=== PATIENT | female | born 1930 | race Caucasian/White ===

== ENCOUNTER → 2016-10-27 | Outpatient (CLI) | payer MEDICARE, BC ==
[~2016-10-27] MED LIST: ASPI325T PO; ATOR10TA15 PO; CARV3.12 PO; CARV3.125 PO; CARV6.25 PO; CEPH-460 PO; CYAN1TAB22 PO; LISI-519 PO; MULTTAB67 PO; [UNRECOGNIZED DRUG - CODE] PO
[2016-10-27 12:55] LABS: HEMATOCRIT 44.2 % (35.0-46.0); MEAN CELL VOLUME 89.7 FL (80.0-100.0); MEAN CORPUSCULAR HEMOGLOBIN 29.4 PG (27.0-34.0); MEAN CORPUSCULAR HGB CONC 32.8 % (32.0-36.0); PLATELET COUNT 226 TH/MM3 (150-450); RED BLOOD COUNT 4.93 MIL/MM3 (4.00-5.30); REVIEW FLAG FINAL; WHITE BLOOD COUNT 15.5 TH/MM3 (4.0-11.0)
[2016-10-27 13:30] LABS: ALT (GPT) 13 U/L (10-53); ANION GAP 7 MEQ/L (5-15); AST (GOT) 13 U/L (15-37); BICARBONATE 31.3 MEQ/L (21.0-32.0); BLOOD UREA NITROGEN 18 MG/DL (7-18); CHLORIDE 102 MEQ/L (98-107); GLOMERULAR FILTRATION RATE 93 ML/MIN (>89); GLUCOSE,FASTING 92 MG/DL (74-99); POTASSIUM 4.1 MEQ/L (3.5-5.1); SODIUM (NA) 140 MEQ/L (136-145)
[2016-10-27 13:34] LABS: ALKALINE PHOSPHATASE 115 U/L (45-117); LDL CHOLESTEROL 29 MG/DL (0-99); TOTAL BILIRUBIN ADULT 0.7 MG/DL (0.2-1.0)
[2016-10-27 13:39] LABS: CREATINE KINASE 45 U/L (26-192)
== END ==
LOC: PLAB 07:56
DX: Z79.899 Other long term (current) drug therapy (principal); I25.10 Atherosclerotic heart disease of native coronary artery without angina pectoris; I10 Essential (primary) hypertension
CPT/HCPCS: 36415; 80053; 80061; 82550; 85027

== ENCOUNTER 2016-11-06 14:11 | Emergency (ER) | payer MEDICARE, BC ==
[~2016-11-06] VITALS: Ht 149.9 cm; Wt 65.0 kg
[~2016-11-06 14:11] MED LIST changes: -CARV3.125 PO; -CARV6.25 PO; -CEPH-460 PO; -LISI-519 PO
[2016-11-06 14:13] VITALS: BP 139/66; PULSE 67; RESP 14; TEMP 98.6; O2SAT 96
[2016-11-06] MEDS ORDERED: SODIUM CHLORIDE 0.9% FLUSH 5 ML FLUSH IVF PRN (15:45)
--- NOTE | 2016-11-06 15:57 | PD ---
HPI . Weakness Chief Complaint: General Weakness Time Seen by Provider: 15:27 Travel History International Travel<30 days: No Contact w/Intl Traveler<30days: No Traveled to known affect area: No History of Present Illness HPI The patient presents with a chief complaint of weakness. Her history starts back in August when she suffered a fall from bed. At that time, she had clinical symptoms compatible with a stroke. She was admitted to the hospital and subsequently discharged to a rehabilitation facility. She states that she was just discharged from the rehabilitation facility 2 weeks ago. She now lives at home with her daughter and has home health. There is not someone with her 04/05 but there are people in and out of the house constantly all day long. The daughter states that they noted increased weakness yesterday. The patient sat on the toilet for prolonged period of time. She was too weak to get up off the toilet. The daughter states that they called the patient's primary care physician today who instructed them to come to the emergency department to get an MRI. The patient denies headache or blurred vision. The daughter states that the patient's facial droop and speech have waxed and waned since August and are not appreciably changed today. The patient denies any fever, cold symptoms, GI symptoms, symptoms. Her only real symptom today is weakness. She also states that she has arthritis. PFSH Past Medical History Arthritis: Yes Blood Disorders: No Anxiety: No Depression: No Heart Rhythm Problems: No Cancer: Yes (Breast lumpectomy caught early, good follow up ) Cardiac Catheterization: Yes (4 stents last 2007) Cardiovascular Problems: Yes (stentx5) High Cholesterol: Yes Chemotherapy: No Chest Pain: No Congestive Heart Failure: Yes (2006) Cerebrovascular Accident: Yes (cvax3) Coronary Artery Disease: Yes Diabetes: No Diminished Hearing: No Endocrine: No Gastrointestinal Disorders: No Genitourinary: No Hypertension: Yes Immune Disorder: No Implanted Vascular Access Dvce: Yes Musculoskeletal: Yes (Walks with shuffle, Left side affected by stroke, does ADLs ) Neurologic: Yes (2 strokes 2002 & 2005) Psychiatric: No Reproductive: No Respiratory: Yes Radiation Therapy: No Thyroid Disease: No Influenza Vaccination: No Menopausal: Yes Past Surgical History Body Medical Devices: Stents in the heart Pacemaker: No Other Surgery: Yes (Lumpectomy early cancer 2011, Breast biopsy 1999 neg, Stents ) Social History Alcohol Use: No Tobacco Use: No Substance Use: No Allergies-Medications (Allergen,Severity, Reaction): Coded Allergies: Bisphosphonates (Verified Allergy, Severe, ALLERGY TO BONIVA-HYPOTENSION, 01/24/15) Reported Meds & Prescriptions Reported Meds & Active Scripts Active Aspirin 325 Mg Tab 325 Mg PO DAILY Reported Coreg (Carvedilol) 6.25 Mg Tab 6.25 Mg PO BID Atorvastatin (Atorvastatin Calcium) 10 Mg Tab 10 Mg PO HS Niacin 500 Mg Tab 500 Mg PO DAILY Vitamin B-12 (Cyanocobalamin) 5,000 Mcg Tab 5,000 Mcg PO DAILY Multiple Vitamin 1 Tab 1 Tab PO DAILY Review of Systems Except as stated in HPI: all other systems reviewed are Neg General / Constitutional: No: Fever, Chills Eyes: No: Diploplia, Blurred Vision HENT: No: Headaches, Vertigo Cardiovascular: No: Chest Pain or Discomfort Respiratory: No: Cough, Shortness of Breath Gastrointestinal: No: Nausea, Vomiting, Diarrhea, Abdominal Pain Genitourinary: No: Urgency, Frequency, Dysuria Musculoskeletal: Positive: Arthralgias Neurologic: Positive: Weakness, Slurred Speech, No: Dizziness, Syncope, Headache, Change in Mentation, Incontinence, Seizures Physical Exam Narrative GENERAL: The patient is awake and alert and able to give her own history. SKIN: Warm and dry. HEAD: Atraumatic. Normocephalic. EYES: Pupils equal and round. Extraocular movements are intact. ENT: No nasal bleeding or discharge. Mucous membranes pink and moist. NECK: Trachea midline. Neck is supple. CARDIOVASCULAR: Regular rate and rhythm. Heart sounds are normal. RESPIRATORY: No accessory muscle use. Lungs clear with full air movement throughout. GASTROINTESTINAL: Abdomen soft, non-tender, nondistended. MUSCULOSKELETAL: No obvious deformities. No edema. She has some arthritic changes in her joints. NEUROLOGICAL: Awake and alert. No obvious cranial nerve deficits. She can wrinkle her forehead, squeeze her eyes shut, smile equally and protrude her tongue in the midline. Motor grossly within normal limits. Speech is a little pressure. She has some tremors with [id number]. But, she does not "miss." PSYCHIATRIC: Appropriate mood and affect; insight and judgment normal. Data Data Last Documented VS Vital Signs Date Time Temp Pulse Resp B/P Pulse Ox O2 Delivery O2 Flow Rate FiO2 11/06/16 17:13 62 14 166/70 98 Room Air 11/06/16 14:13 98.6 Orders Electrocardiogram (11/06/16 15:42) Complete Blood Count With Diff (11/06/16 15:42) Comprehensive Metabolic Panel (11/06/16 15:42) Creatine Kinase (Cpk) (11/06/16 15:42) Troponin I (11/06/16 15:42) Urinalysis - C+S If Indicated (11/06/16 15:42) Ct Brain W/O Iv Contrast(Rout) (11/06/16 15:42) Blood Glucose (11/06/16 15:42) Ecg Monitoring (11/06/16 15:42) Iv Access Insert/Monitor (11/06/16 15:42) Cath For Specimen (11/06/16 15:42) Oximetry (11/06/16 15:42) Sodium Chloride 0.9% Flush (Ns Flush) (11/06/16 15:45) CKMB (11/06/16 16:00) CKMB% (11/06/16 16:00) Urine Culture (11/06/16 16:30) Ceftriaxone Inj (Rocephin Inj) (11/06/16 17:45) Labs Laboratory Tests Test 11/06/16 11/06/16 16:00 16:30 White Blood Count 9.1 TH/MM3 Red Blood Count 5.01 MIL/MM3 Hemoglobin 14.7 GM/DL Hematocrit 44.5 % Mean Corpuscular Volume 88.8 FL Mean Corpuscular Hemoglobin 29.3 PG Mean Corpuscular Hemoglobin 33.0 % Concent Red Cell Distribution Width 14.2 % Platelet Count 273 TH/MM3 Mean Platelet Volume 7.8 FL Neutrophils (%) (Auto) 77.0 % Lymphocytes (%) (Auto) 12.4 % Monocytes (%) (Auto) 9.2 % Eosinophils (%) (Auto) 1.3 % Basophils (%) (Auto) 0.1 % Neutrophils # (Auto) 7.0 TH/MM3 Lymphocytes # (Auto) 1.1 TH/MM3 Monocytes # (Auto) 0.8 TH/MM3 Eosinophils # (Auto) 0.1 TH/MM3 Basophils # (Auto) 0.0 TH/MM3 CBC Comment DIFF FINAL Differential Comment Sodium Level 140 MEQ/L Potassium Level 4.1 MEQ/L Chloride Level 104 MEQ/L Carbon Dioxide Level 29.2 MEQ/L Anion Gap 7 MEQ/L Blood Urea Nitrogen 13 MG/DL Creatinine 0.65 MG/DL Estimat Glomerular Filtration 86 ML/MIN Rate Random Glucose 85 MG/DL Calcium Level 8.8 MG/DL Total Bilirubin 0.3 MG/DL Aspartate Amino Transf 24 U/L (AST/SGOT) Alanine Aminotransferase 20 U/L (ALT/SGPT) Alkaline Phosphatase 108 U/L Total Creatine Kinase 263 U/L Creatine Kinase MB 4.7 NG/ML Creatine Kinase MB % 1.8 % Troponin I LESS THAN 0.02 NG/ML Total Protein 6.9 GM/DL Albumin 2.7 GM/DL Urine Color YELLOW Urine Turbidity CLEAR Urine pH 6.0 Urine Specific [employer] 1.015 Urine Protein NEG mg/dL Urine Glucose (UA) NEG mg/dL Urine Ketones NEG mg/dL Urine Occult Blood NEG Urine Nitrite NEG Urine Bilirubin NEG Urine Urobilinogen LESS THAN 2.0 MG/DL Urine Leukocyte Esterase TRACE Urine RBC 1 /hpf Urine WBC 6 /hpf Urine Squamous Epithelial 1 /hpf Cells Urine Bacteria RARE /hpf Urine Mucus FEW /lpf Microscopic Urinalysis Comment CATH-CULTURE IND MDM Medical Decision Making Medical Screen Exam Complete: Yes Emergency Medical Condition: Yes Medical Record Reviewed: Yes (patient was previously admitted about 2 months ago with symptoms compatible with stroke. She had carotid ultrasounds that showed plaque but no limitation to blood flow. Her brain CT showed chronic changes and her brain MRI showed chronic changes along with an old right occipital infarct.) Interpretation(s) EKG shows a normal sinus rhythm with no acute ischemic change. Differential Diagnosis Differential diagnosis of weakness includes but is not limited to infection, CVA , electrolyte disturbance, renal failure, hypoglycemia, UTI, ACS Narrative Course Patient presents with her daughter with a chief complaint of weakness. The daughter is requesting an MRI stating that the primary care physician told them to come here for an MRI. I think we should probably start with a CT. I also think that she needs to be worked up for something relatively benign such as a UTI. CBC is normal. Her chemistries are unremarkable. Cardiac enzymes are negative. UA is suggestive of UTI with positive leukocyte esterase, bacteria well as white blood cells. I will give her a dose of Rocephin and then discharged home Keflex. Her CT shows no acute change. Diagnosis Primary Impression: UTI (urinary tract infection) Qualified Code: N30.00 - Acute cystitis without hematuria Additional Impression: Facial droop Patient Instructions: General Instructions Additional Instructions: Take your antibiotic as directed and drink lots of fluids. Med/Other Pt SpecificInfo: Prescription(s) given Scripts Cephalexin (Keflex)500 Mg Uoz050 Mg PO Q8H #30 CAP Ref 0 Prov:Elma Gauthier MD 11/06/16 Disposition: 01 DISCHARGE HOME Condition: Stable Elma Gauthier MD Nov 06, 2016 15:57
[2016-11-06 16:30] LABS: BASOPHIL % 0.1 % (0.0-2.0); EOSINOPHIL # 0.1 TH/MM3 (0-0.4); EOSINOPHIL % 1.3 % (0.0-4.0); HEMATOCRIT 44.5 % (35.0-46.0); HEMO FLAGS DIFF FINAL; LYMPH % 12.4 % (9.0-44.0); LYMPHOCYTE # 1.1 TH/MM3 (1.0-4.8); MEAN CELL VOLUME 88.8 FL (80.0-100.0); MEAN CORPUSCULAR HEMOGLOBIN 29.3 PG (27.0-34.0); MONO % 9.2 % (0.0-8.0); PLATELET COUNT 273 TH/MM3 (150-450); RED BLOOD COUNT 5.01 MIL/MM3 (4.00-5.30); RED CELL DISTRIBUTION WIDTH 14.2 % (11.6-17.2); WHITE BLOOD COUNT 9.1 TH/MM3 (4.0-11.0)
[2016-11-06] MEDS ORDERED: CARV6.25 PO (16:42)
[2016-11-06 16:43] LABS: ALT (GPT) 20 U/L (10-53); ANION GAP 7 MEQ/L (5-15); AST (GOT) 24 U/L (15-37); BICARBONATE 29.2 MEQ/L (21.0-32.0); BLOOD UREA NITROGEN 13 MG/DL (7-18); CHLORIDE 104 MEQ/L (98-107); GLOMERULAR FILTRATION RATE 86 ML/MIN (>89); POTASSIUM 4.1 MEQ/L (3.5-5.1); SODIUM (NA) 140 MEQ/L (136-145)
[2016-11-06 16:45] LABS: ALKALINE PHOSPHATASE 108 U/L (45-117); CREATINE KINASE 263 U/L (26-192); TOTAL BILIRUBIN ADULT 0.3 MG/DL (0.2-1.0)
[2016-11-06 16:47] LABS: BACTERIA, URINE RARE /hpf; BLOOD, URINE NEG (NEG); GLUCOSE,URINE NEG (NEG); KETONE, URINE NEG (NEG); MUCUS URINE FEW /lpf (OCC); NITRITE,URINE NEG (NEG); SQUAMOUS EPITHELIAL CELL URINE 1 /hpf (0-5); URINE COLOR YELLOW (YELLW/STRAW)
[2016-11-06 16:58] LABS: COMMENT (UR) CATH-CULTURE IND; CULTURE IF INDICATED CATH CULTURE IND
--- NOTE | 2016-11-06 17:00 | RADRPT ---
EXAM DATE/TIME: 11/06/2016 16:42 [facility] COMPARISON: MRI BRAIN W/O CONTRAST, September 05, 2016, 20:33. CT BRAIN W/O CONTRAST, September 05, 2016, 11:05. INDICATIONS : Generalized weakness with altered mental status and loss of appetite. RADIATION DOSE: 33.85 CTDIvol (mGy) MEDICAL HISTORY : Cerebrovascular disease. Hypertension. Carcinoma, breast. SURGICAL HISTORY : None. ENCOUNTER: Initial ACUITY: 1 day PAIN SCALE: 0/10 LOCATION: cranial TECHNIQUE: Multiple contiguous axial images were obtained of the head. Using automated exposure control and adj ustment of the mA and/or kV according to patient size, radiation dose was kept as low as reasonably a chievable to obtain optimal diagnostic quality images. FINDINGS: CEREBRUM: The ventricles are normal for age. No evidence of midline shift, mass lesion, hemorrhage or acute in farction. No extra-axial fluid collections are seen. POSTERIOR FOSSA: The cerebellum and brainstem are intact. The 4th ventricle is midline. The cerebellopontine angle i s unremarkable. EXTRACRANIAL: The visualized portion of the orbits is intact. SKULL: The calvaria is intact. No evidence of skull fracture. Air fluid level identified within the left ma xillary sinus. CONCLUSION: Normal examination for a patient of this age. Left maxillary sinus disease. Mildred Romo MD on November 06, 2016 at 16:57 Board Certified Radiologist. This report was verified electronically.
[2016-11-06 17:13] VITALS: BP 166/70; PULSE 62; RESP 14; O2SAT 98
[2016-11-06 17:17] LABS: CKMB 4.7 NG/ML (0.5-3.6)
[2016-11-06] MEDS ORDERED: cefTRIAXone INJ 1,000 MG in SODIUM CHLORIDE 0.9% INJ 100 ML IV ONE (17:45)
[2016-11-06] MEDS ORDERED: CEPH-460 PO ×2 (18:07→19:56)
[2016-11-06 18:28] VITALS: BP 152/63; PULSE 64; RESP 16; O2SAT 96
[2016-11-06 19:15] VITALS: BP 183/80; PULSE 63; RESP 18; O2SAT 96
--- NOTE | 2016-11-07 16:38 | EKG ---
Date Performed: 11/06/2016 Time Performed: 16:12:16 PTAGE: 86 years EKG: SINUS BRADYCARDIA WITH SINUS ARRHYTHMIA BORDERLINE ECG NO PREVIOUS TRACING DOCTOR: Vernon Liu Interpretating Date/Time 11/07/2016 16:37:07
== END 2016-11-06 20:12 | disposition home or self-care (01) ==
LOC: NEPA 14:11
DX: N39.0 Urinary tract infection, site not specified (principal); R29.810 Facial weakness; R53.1 Weakness; I49.8 Other specified cardiac arrhythmias; R00.1 Bradycardia, unspecified; I69.393 Ataxia following cerebral infarction; E78.00 Pure hypercholesterolemia, unspecified; I50.9 Heart failure, unspecified; I10 Essential (primary) hypertension
CPT/HCPCS: 70450; 80053; 81001; 82550; 82552; 84484; 85025; 87086; 93005; 96365; 99285; J0696; P9612

== ENCOUNTER 2016-12-05 19:00 | Observation (INO) | payer MEDICARE, BC ==
[~2016-12-05] VITALS: Ht 149.9 cm; Wt 61.8 kg
[~2016-12-05 19:00] MED LIST changes: -CARV3.12 PO; +CARV6.25 PO; +CEPH-460 PO
[2016-12-05 19:11] VITALS: BP 167/73; PULSE 64; RESP 18; TEMP 98.5; O2SAT 97
[2016-12-05 20:05] VITALS: BP 186/78; PULSE 64; RESP 16; TEMP 98.5; O2SAT 96
--- NOTE | 2016-12-05 20:07 | PD ---
HPI Chief Complaint: syncope Time Seen by Provider: 19:52 Travel History International Travel<30 days: No Contact w/Intl Traveler<30days: No Traveled to known affect area: No History of Present Illness HPI This 86-year-old female is brought by her daughter. The daughter says that she came home from work today and found her slumped over the toilet. She was awake but she was not able to get up. She had gone to the bathroom and apparently had a syncopal episode and she turned to flush the toilet. She has not had syncopal episodes before. The daughter says that she helped the cleanup and then was walking her felt that her gait was very unsteady. While walking her she had a second episode syncopal episode. She denies any chest pain or shortness of breath. She has stents in her heart. She has had 2 strokes in the past. Strokes affected her right side and she has had a fairly good recovery. PFSH Past Medical History Arthritis: Yes Blood Disorders: No Anxiety: No Depression: No Heart Rhythm Problems: No Cancer: Yes (Breast lumpectomy caught early, good follow up ) Cardiac Catheterization: Yes (4 stents last 2007) Cardiovascular Problems: Yes (stentx5) High Cholesterol: Yes Chemotherapy: No Chest Pain: No Congestive Heart Failure: Yes (2005) Cerebrovascular Accident: Yes (cvax3) Coronary Artery Disease: Yes Diabetes: No Diminished Hearing: No Endocrine: No Gastrointestinal Disorders: No Genitourinary: No Hypertension: Yes Immune Disorder: No Implanted Vascular Access Dvce: Yes Musculoskeletal: Yes (Walks with shuffle, Left side affected by stroke, does ADLs ) Neurologic: Yes (2 strokes 2002 & 2005) Psychiatric: No Reproductive: No Respiratory: Yes Radiation Therapy: No Thyroid Disease: No Menopausal: Yes Past Surgical History Body Medical Devices: Stents in the heart Pacemaker: No Other Surgery: Yes (Lumpectomy early cancer 2011, Breast biopsy 1999 neg, Stents ) Social History Alcohol Use: No Tobacco Use: No Substance Use: No Allergies-Medications (Allergen,Severity, Reaction): Coded Allergies: Bisphosphonates (Verified Allergy, Severe, ALLERGY TO BONIVA-HYPOTENSION, 01/24/15) Reported Meds & Prescriptions Reported Meds & Active Scripts Active Aspirin 325 Mg Tab 325 Mg PO DAILY Reported Coreg (Carvedilol) 6.25 Mg Tab 6.25 Mg PO BID Atorvastatin (Atorvastatin Calcium) 10 Mg Tab 10 Mg PO HS Niacin 500 Mg Tab 500 Mg PO DAILY Vitamin B-12 (Cyanocobalamin) 5,000 Mcg Tab 5,000 Mcg PO DAILY Multiple Vitamin 1 Tab 1 Tab PO DAILY Review of Systems General / Constitutional: No: Fever, Chills Eyes: No: Diploplia, Blurred Vision HENT: Positive: Lightheadedness, No: Headaches, Vertigo Cardiovascular: Positive: Syncope, No: Chest Pain or Discomfort, Palpitations Respiratory: No: Cough Gastrointestinal: No: Vomiting, Diarrhea Genitourinary: No: Urgency, Frequency Musculoskeletal: No: Myalgias, Arthralgias Skin: No Rash Neurologic: Positive: Weakness, Syncope, No: Focal Abnormalities Hematologic/Lymphatic: No: Easy Bruising Physical Exam Narrative GENERAL: Well-developed female SKIN: Warm and dry. HEAD: Atraumatic. Normocephalic. EYES: Pupils equal and round. No scleral icterus. No injection or drainage. ENT: No nasal bleeding or discharge. Mucous membranes pink and moist. NECK: Trachea midline. No JVD. CARDIOVASCULAR: Regular rate and rhythm. No murmur appreciated. RESPIRATORY: No accessory muscle use. Clear to auscultation. Breath sounds equal bilaterally. GASTROINTESTINAL: Abdomen soft, non-tender, nondistended. Hepatic and splenic margins not palpable. MUSCULOSKELETAL: No obvious deformities. No clubbing. No cyanosis. No edema. There is limited range of motion of the right shoulder from an old injury NEUROLOGICAL: Awake and alert. No obvious cranial nerve deficits. Motor grossly within normal limits. Normal speech. Sensation is intact PSYCHIATRIC: Appropriate mood and affect; insight and judgment normal. Data Data Last Documented VS Vital Signs Date Time Temp Pulse Resp B/P Pulse Ox O2 Delivery O2 Flow Rate FiO2 12/05/16 20:32 63 16 160/74 64 16 186/78 61 16 176/64 12/05/16 20:14 96 Room Air 12/05/16 20:05 98.5 Orders Electrocardiogram (12/05/16 20:02) Complete Blood Count With Diff (12/05/16 20:02) Comprehensive Metabolic Panel (12/05/16 20:02) Troponin I (12/05/16 20:02) B-Type Natriuretic Peptide (12/05/16 20:02) Prothrombin Time / Inr (Pt) (12/05/16 20:02) Act Partial Throm Time (Ptt) (12/05/16 20:02) Urinalysis - C+S If Indicated (12/05/16 20:02) Chest, Single Ap (12/05/16 20:02) Ct Brain W/O Iv Contrast(Rout) (12/05/16 20:02) Iv Access Insert/Monitor (12/05/16 20:02) Orthostatic Vital Signs (12/05/16 20:02) Labs Laboratory Tests Test 12/05/16 20:20 White Blood Count 10.1 TH/MM3 Red Blood Count 5.32 MIL/MM3 Hemoglobin 15.3 GM/DL Hematocrit 46.1 % Mean Corpuscular Volume 86.7 FL Mean Corpuscular Hemoglobin 28.7 PG Mean Corpuscular Hemoglobin 33.1 % Concent Red Cell Distribution Width 13.2 % Platelet Count 190 TH/MM3 Mean Platelet Volume 8.4 FL Neutrophils (%) (Auto) 75.8 % Lymphocytes (%) (Auto) 15.3 % Monocytes (%) (Auto) 7.0 % Eosinophils (%) (Auto) 1.6 % Basophils (%) (Auto) 0.3 % Neutrophils # (Auto) 7.7 TH/MM3 Lymphocytes # (Auto) 1.5 TH/MM3 Monocytes # (Auto) 0.7 TH/MM3 Eosinophils # (Auto) 0.2 TH/MM3 Basophils # (Auto) 0.0 TH/MM3 CBC Comment DIFF FINAL Differential Comment Prothrombin Time 10.7 SEC Prothromb Time International 1.0 RATIO Ratio Activated Partial 27.7 SEC Thromboplast Time Urine Color YELLOW Urine Turbidity CLEAR Urine pH 6.0 Urine Specific [place] 1.007 Urine Protein NEG mg/dL Urine Glucose (UA) NEG mg/dL Urine Ketones NEG mg/dL Urine Occult Blood TRACE Urine Nitrite NEG Urine Bilirubin NEG Urine Leukocyte Esterase TRACE Urine RBC 3-5 /hpf Urine WBC 0-2 /hpf Urine Squamous Epithelial 0-5 /hpf Cells Urine Bacteria NONE /hpf Microscopic Urinalysis Comment CULT NOT INDICATED Sodium Level 139 MEQ/L Potassium Level 4.1 MEQ/L Chloride Level 102 MEQ/L Carbon Dioxide Level 29.7 MEQ/L Anion Gap 7 MEQ/L Blood Urea Nitrogen 12 MG/DL Creatinine 0.64 MG/DL Estimat Glomerular Filtration 88 ML/MIN Rate Random Glucose 94 MG/DL Calcium Level 9.1 MG/DL Total Bilirubin 0.6 MG/DL Aspartate Amino Transf 18 U/L (AST/SGOT) Alanine Aminotransferase 24 U/L (ALT/SGPT) Alkaline Phosphatase 123 U/L Troponin I 0.02 NG/ML B-Type Natriuretic Peptide 83 PG/ML Total Protein 7.4 GM/DL Albumin 3.5 GM/DL MDM Medical Decision Making Medical Screen Exam Complete: Yes Emergency Medical Condition: Yes Medical Record Reviewed: Yes Differential Diagnosis Differential includes syncope, dysrhythmia, hypotension Narrative Course Patient has been stable in the emergency department. EKG shows ectopic atrial bradycardia at a rate of 58. Electrolytes and troponin are normal. Chest x- ray negative. CT scan shows evidence of previous stroke but otherwise negative. Patient has had 2 syncopal episodes within a short period of time tonight. He'll be admitted for further evaluation Diagnosis Primary Impression: Syncope Qualified Code: R55 - Syncope, unspecified syncope type Juarez Hess MD Dec 05, 2016 20:07
[2016-12-05 20:30] LABS: AUTOMATED NEUTROPHIL # 7.7 TH/MM3 (1.8-7.7); BASOPHIL % 0.3 % (0.0-2.0); EOSINOPHIL # 0.2 TH/MM3 (0-0.4); EOSINOPHIL % 1.6 % (0.0-4.0); HEMATOCRIT 46.1 % (35.0-46.0); HEMO FLAGS DIFF FINAL; LYMPH % 15.3 % (9.0-44.0); LYMPHOCYTE # 1.5 TH/MM3 (1.0-4.8); MEAN CELL VOLUME 86.7 FL (80.0-100.0); MEAN CORPUSCULAR HEMOGLOBIN 28.7 PG (27.0-34.0); MEAN CORPUSCULAR HGB CONC 33.1 % (32.0-36.0); NEUT % 75.8 % (16.0-70.0); PLATELET COUNT 190 TH/MM3 (150-450); RED BLOOD COUNT 5.32 MIL/MM3 (4.00-5.30); RED CELL DISTRIBUTION WIDTH 13.2 % (11.6-17.2); WHITE BLOOD COUNT 10.1 TH/MM3 (4.0-11.0)
[2016-12-05 20:32] VITALS: BP_SYST 160; BP_SYST 176; BP_SYST 186; BP_DIAS 64; BP_DIAS 74; BP_DIAS 78; RESP 16
[2016-12-05 20:32] LABS: BLOOD, URINE TRACE (NEG); GLUCOSE,URINE NEG (NEG); KETONE, URINE NEG (NEG); NITRITE,URINE NEG (NEG)
[2016-12-05 20:45] LABS: CHLORIDE 102 MEQ/L (98-107); POTASSIUM 4.1 MEQ/L (3.5-5.1); SODIUM (NA) 139 MEQ/L (136-145)
[2016-12-05 20:46] LABS: URINE COLOR YELLOW (YELLW/STRAW)
[2016-12-05 20:47] LABS: COMMENT (UR) CULT NOT INDICATED; CULTURE IF INDICATED CULT NOT INDICATED; SQUAMOUS EPITHELIAL CELL URINE 0-5 /hpf (0-5); WBC, URINE 0-2 /hpf (0-5)
--- NOTE | 2016-12-05 20:47 | RADHPO ---
EXAM DATE/TIME: 12/05/2016 20:24 [facility] COMPARISON: CHEST SINGLE AP, February 14, 2013, 14:35. INDICATIONS : Chest pain. MEDICAL HISTORY : Cerebrovascular disease. Carcinoma, breast. Hypertension. SURGICAL HISTORY : None. ENCOUNTER: Initial ACUITY: 1 day PAIN SCORE: 4/10 LOCATION: Bilateral cranial FINDINGS: A single view of the chest demonstrates the lungs to be symmetrically aerated without evidence of mas s, infiltrate or effusion. The cardiomediastinal contours are unremarkable. There is atherosclerotic calcification and tortuosity of the thoracic aorta. Chronic arthropathy again seen of both glenohumeral joints, only modestly worse since 2012. CONCLUSION: No evidence of acute cardiopulmonary disease. Jose Escobar MD on December 05, 2016 at 20:44 Board Certified Radiologist. This report was verified electronically.
[2016-12-05 20:48] LABS: ANION GAP 7 MEQ/L (5-15); BICARBONATE 29.7 MEQ/L (21.0-32.0)
[2016-12-05 20:49] LABS: BLOOD UREA NITROGEN 12 MG/DL (7-18)
[2016-12-05 20:51] LABS: ALT (GPT) 24 U/L (10-53)
--- NOTE | 2016-12-05 20:51 | RADHPO ---
EXAM DATE/TIME: 12/05/2016 20:26 [facility] COMPARISON: MRI BRAIN W/O CONTRAST, September 05, 2016, 20:33. CT BRAIN W/O CONTRAST, November 06, 2016, 16:42. INDICATIONS : Syncopal episode. RADIATION DOSE: 60.61 CTDIvol (mGy) MEDICAL HISTORY : Cerebrovascular disease. Hypertension. Congestive heart failure. SURGICAL HISTORY : Coronary artery stent. ENCOUNTER: Initial ACUITY: 1 day PAIN SCALE: 0/10 LOCATION: cranial TECHNIQUE: Multiple contiguous axial images were obtained of the head. Using automated exposure control and adj ustment of the mA and/or kV according to patient size, radiation dose was kept as low as reasonably a chievable to obtain optimal diagnostic quality images. FINDINGS: CEREBRUM: The ventricles are normal for age. No evidence of midline shift, mass lesion, hemorrhage or acute in farction. No extra-axial fluid collections are seen. Chronic low attenuation again seen in the periv entricular white matter. There is an old right occipital lobe infarct again seen. POSTERIOR FOSSA: The cerebellum and brainstem are intact. The 4th ventricle is midline. The cerebellopontine angle i s unremarkable. EXTRACRANIAL: The visualized portion of the orbits is intact. SKULL: The calvaria is intact. No evidence of skull fracture. CONCLUSION: 1. No acute intracranial abnormality. 2. Old right occipital lobe infarct. 3. Chronic white matter changes. Jose Escobar MD on December 05, 2016 at 20:48 Board Certified Radiologist. This report was verified electronically.
[2016-12-05 20:52] LABS: APTT (PATIENT) 27.7 SEC (24.3-30.1); AST (GOT) 18 U/L (15-37); GLOMERULAR FILTRATION RATE 88 ML/MIN (>89); PROTHROMBIN TIME - PATIENT 10.7 SEC (9.8-11.6)
[2016-12-05 20:53] LABS: TOTAL BILIRUBIN ADULT 0.6 MG/DL (0.2-1.0)
[2016-12-05 20:55] LABS: ALKALINE PHOSPHATASE 123 U/L (45-117)
[2016-12-05] MEDS ORDERED: SODIUM CHLOR 0.9% 1000 ML INJ 1,000 ML IV SCH (21:52)
[2016-12-05 21:54] VITALS: BP 156/58; PULSE 64; RESP 16; O2SAT 96
[2016-12-05] MEDS ORDERED: ONDANSETRON HCL 4 MG/2 ML VIAL IVP PRN (22:00)
[2016-12-05] MEDS ORDERED: SODIUM CHLORIDE 0.9% FLUSH 5 ML FLUSH FLUSH PRN (22:00)
[2016-12-05] MEDS ORDERED: NALOXONE HCL 0.4 MG/ML AMP IV PRN (22:00)
[2016-12-05] MEDS: CARVEDILOL 6.25 MG TAB PO SCH (22:59)
[2016-12-05 23:26] VITALS: BP 145/85
[2016-12-06] VITALS (7 sets, daily range): BP systolic 131–171; BP diastolic 64–93; PULSE 61–80; RESP 18–20; TEMP 97.3–98.2; O2SAT 92–97
--- NOTE | 2016-12-06 00:07 | RADHPO ---
EXAM DATE/TIME: 12/05/2016 23:30 [facility] COMPARISON: US CAROTID ARTERIES, September 06, 2016, 8:59. INDICATIONS : Syncope. MEDICAL HISTORY : Congestive heart failure. Hypercholesterolemia. Carcinoma, breast. CVA. Syncope. CAD. HTN. Dyspnea. A rthritis. Anticoagulant therapy, Aspirin. SURGICAL HISTORY : Coronary artery stent. Cardiac cath. Breast biopsy and lumpectomy. ENCOUNTER: Subsequent ACUITY: 1 day PAIN SCORE: 0/10 LOCATION: Bilateral neck PEAK SYSTOLIC VELOCITIES (cm/sec): ICA/CCA RATIO: Right: 1.0 Left: 0.9 ICA: Right: 61 Left: 93 CCA: Right: 58 Left: 102 ECA: Right: 126 Left: 118 VERTEBRAL: Right: 84 antegrade Left: 67 antegrade Elevated flow velocities and ICA/CCA ratios have been found to correlate with increased degrees of vessel stenosis, calculated as percentage of diameter relative to a normal segment of distal ICA/CCA FINDINGS: RIGHT CAROTID: No significant stenosis is visualized. The waveforms are within normal limits. LEFT CAROTID: No significant stenosis is visualized. The waveforms are within normal limits. VERTEBRAL ARTERIES: Antegrade flow is seen in both vertebral arteries. MISCELLANEOUS: None. CONCLUSION: 1. No evidence for hemodynamically significant stenosis. Mild atherosclerotic plaquing is noted later ally. Darren Nava MD on December 06, 2016 at 0:05 Board Certified Radiologist. This report was verified electronically.
--- NOTE | 2016-12-06 07:41 | EKG ---
Date Performed: 12/05/2016 Time Performed: 20:11:36 PTAGE: 86 years EKG: Possible multifocal atrial bradycardia. Abnormal ECG PREVIOUS TRACING : 11/06/2016 16.12 Compared to previous tracing, possible multifocal atrial br adycardia has replaced ectopic atrial rhythm. DOCTOR: Abraham Davalos Interpretating Date/Time 12/06/2016 07:39:13
[2016-12-06] MEDS: SODIUM CHLORIDE 0.9% FLUSH 5 ML FLUSH FLUSH SCH ×2 (08:00→20:29)
[2016-12-06] MEDS: NIACIN 500 MG EXTENDED RELEASE TAB PO SCH (08:01)
[2016-12-06] MEDS: MULTIVITAMIN TAB PO SCH (08:01)
[2016-12-06] MEDS: CARVEDILOL 6.25 MG TAB PO SCH ×2 (08:02→20:28)
[2016-12-06] MEDS: ASPIRIN 325 MG TAB PO SCH (08:02)
[2016-12-06 08:59] LABS: AUTOMATED NEUTROPHIL # 3.8 TH/MM3 (1.8-7.7); BASOPHIL % 0.5 % (0.0-2.0); EOSINOPHIL # 0.1 TH/MM3 (0-0.4); EOSINOPHIL % 2.5 % (0.0-4.0); HEMATOCRIT 40.7 % (35.0-46.0); HEMO FLAGS DIFF FINAL; LYMPHOCYTE # 1.3 TH/MM3 (1.0-4.8); MEAN CORPUSCULAR HEMOGLOBIN 28.8 PG (27.0-34.0); MEAN CORPUSCULAR HGB CONC 33.1 % (32.0-36.0); PLATELET COUNT 153 TH/MM3 (150-450); RED BLOOD COUNT 4.68 MIL/MM3 (4.00-5.30); RED CELL DISTRIBUTION WIDTH 13.5 % (11.6-17.2); WHITE BLOOD COUNT 5.6 TH/MM3 (4.0-11.0)
[2016-12-06 09:06] LABS: POTASSIUM 4.3 MEQ/L (3.5-5.1)
--- NOTE | 2016-12-06 10:41 | MH ---
cc: GAMA WILDER MD DATE OF ADMISSION: 12/05/2016 CHIEF COMPLAINT Syncopal episode HISTORY OF PRESENT ILLNESS This is 86-year female with past medical-surgical history significant for arthritis, history of breast cancer, status post a left breast lumpectomy and had a cardiac catheterization with four stents placement in 2007. History of congestive heart failure a stroke in the past x3, history of coronary artery disease, hypertension. Came to the ER at [facility] brought by the daughter. The daughter says that he came home from work today and found her slumped over the toilet, she was awake but she was not able to get up. She had gone to the bathroom, apparently had a syncopal episode, as she is turned to flush the toliet, She had not had any syncopal episodes before. The daughter said that she helped to clean up and then was walking out after that the gait was very unsteady while walking, she had a second syncopal episode. She denies any chest pain or shortness of breath. She had a stent in the heart. She has had two strokes in the past and stroke affected the right side but fairly good recovery the patient also had some slurred speech from the stroke, other than that nothing significant. PAST MEDICAL AND SURGICAL HISTORIES: As dictated above. SOCIAL HISTORY Denies smoking, or drinking or taking drugs, Lives at home with daughter. 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 FAMILY HISTORY: The family history significant for the mother having throat cancer and dad had heart attack. ALLERGIES BISPHOSPHATE MEDICATIONS 1. Aspirin 81 mg daily. 2. Coreg 6.25 mg twice a day. 3. Atorvastatin 10 mg p.o. at bedtime. 4. Niacin 500 mg p.o. daily 5. B12 5000 mcg p.o. daily. 6. Multivitamin p.o. daily. REVIEW OF SYSTEMS All review of systems negative except slurred speech, weakness on the right side of the body, feeling weak and tired. All other review of systems negative. PHYSICAL EXAMINATION IN GENERAL: This is an 86-year-old female laying on the bed not in acute distress. VITAL SIGNS: Temperature 97.5, heart rate 61, respiration 20, blood pressure 145/72, O2 saturation 96% room air. HEAD, EYES, EARS, NOSE, AND THROAT: Normocephalic, atraumatic. EOMI. Oral mucosa moist. NECK: Neck is supple. No visible thyromegaly or neck mass. Trachea central. CARDIOVASCULAR SYSTEM: Regular rate and rhythm. LUNGS: Respirations clear to auscultation bilaterally. ABDOMEN: Soft and nontender. Bowel sounds. EXTREMITIES: No cyanosis or clubbing. Full range of motion of her extermities. NEUROLOGIC: Awake, alert and oriented times four. Moving all extremities, right-sided weakness, slurred speech. PSYCHIATRIC: The patient is cooperative, mood and affect is normal. SKIN: Warm and dry. LABORATORY DATA Include CBC totally unremarkable. BMP totally unremarkable except for GFR 85 low, glucose 570 high. Troponin I is 0.02 x to rock x3, total protein normal. PT 10.7, INR 0.0, APTT 27.7. BMP totally unremarkable except trace occult blood, leukocyte test is trace, 3 to 5 red blood cell, 0 to 2 White blood cell RADIOLOGIC: Carotid ultrasound was done shows no evidence of hemodynamically significant stenosis. Mild atherosclerotic plaquing is noted laterally. CT brain done shows no acute intracranial abnormality or right occipital lobe infarct chronic white matter changes. Chest x-ray was done, it shows no evidence of acute cardiopulmonary disease. ASSESSMENT/PLAN 1. This is a 86-year female who came to the ER diagnosed with syncopal episode, unknown etiology, neurology, cardiology consulted. 2. A CT brain does not show anything acute. Further recommendation per neurology and cardiology. 3. History of coronary artery disease, currently using home medications. 4. History of stroke in the past, now her right side has a little weakness. 5. History of hyperlipidemia. continue with Lipitor 10 mg p.o. daily and niacin 500 mg p.o. daily. 6. History of arthritis. Continue with Tylenol. 7. History of cancer of the breast status post left lumpectomy. 8. DVT prophylaxis. 9. Sequential compression devices. 10. Gastrointestinal prophylaxis with Protonix 40 mg p.o. daily. 11. B12 deficiency. Continue with vitamin B12. 12. We will monitor the patient daily basis and make recommendation daily basis. Gama Wilder MD EA/андрей /9:30 AM /10:14 AM
--- NOTE | 2016-12-06 12:50 | MB ---
cc: SUMMER MCARTHUR M.D. DATE OF CONSULTATION: 12/06/2016 DATE OF : 1930, 86 years old. REASON FOR CONSULTATION: Syncope. HISTORY: The patient is an 86-year-old woman with a history of breast cancer, post lumpectomy left breast. The cardiac cath, four stents in 2007, arthritis, congestive heart failure, possible stroke, past heart disease, hypertension, comes in because the daughter came home from work and found her mother slumped over the toilet awake but not able to get up. She had actually gone to the bathroom and had a syncope there, apparently she tired to flush the toilet. Her gait was very unsteady when she got her up. And then she had a second episode. PAST MEDICAL HISTORY: As stated. SOCIAL HISTORY No tobacco, alcohol or drugs. He lives with daughter. FAMILY HISTORY Mother had throat cancer. The father had a heart attack. ALLERGIES PHOSPHATES HOME MEDICATIONS: Baby aspirin. Coreg Atorvastatin Niacin B12 Multivitamins PHYSICAL EXAMINATION: VITAL SIGNS: On exam of vitals temperature is 98.1, pulse 60 for respiratory rate 18, blood pressure 171/92. Orthostatics supine 160/74 standing 176/64. NECK: Neck is supple. HEART: Regular, she is awake, alert, fluent, hard of hearing, pupils are reactive. Face symmetric. Tongue midline. EXTREMITEIES: Moving all extremities. I cannot appreciate any significant weakness of power but she is in MRI . Toes withdraws. DTRs a 1+, sensory is normal. Gait is withheld. LABORATORY FINDINGS: The labs are reviewed. IMAGING STUDIES Thus far she had a CT scan of the brain which was unremarkable. Carotid ultrasound with no high-grade stenosis. IMPRESSION Syncope, etiology at this point really unknown. There is some question of right-sided weakness. Certainly stroke, TIA cannot be ruled out. She will undergo an MRI of the brain. I did add a cheesh-na of Louie, A 2-D echo. Continue her on antiplatelets she is not orthostatic. Monitor on telemetry. I believe cardiology will be seeing her as well for further recommendations. SCDs Lovenox for DVT prophylaxis We will continue to monitor and make further recommendations accordingly. Thank you, MD KAM Puri/андрей /11:22 AM /12:43 PM
--- NOTE | 2016-12-06 12:56 | RADHPO ---
EXAM DATE/TIME: 12/06/2016 11:34 [facility] COMPARISON: MRI BRAIN W/O CONTRAST, December 06, 2016, 11:34. INDICATIONS : Syncope MEDICAL HISTORY : Hypertension. Carcinoma, breast. Cardiovascular disease. SURGICAL HISTORY : Coronary artery stent. ENCOUNTER: Initial ACUITY: 2 day PAIN SCORE: 0/10 LOCATION: cranial Please note a normal MRA of the brain does not entirely exclude the possibility of a small aneurysm, nor the possibility of distal intracranial vessel disease. TECHNIQUE: 3D time of flight MRA was performed. Source images, multiplanar STS MIP, and 3D volume MIP reconstru ctions were reviewed. FINDINGS: Diffuse atherosclerotic disease of the intracranial vessels. Focal 7 mm long occlusion of the mid rig ht posterior cerebral artery 1.3 cm from the origin. No other proximal high-grade stenosis or occlus ion identified. No evidence of aneurysm. CONCLUSION: 1. 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 2. Diffuse atherosclerotic disease of the intracranial vessels. Sualo Pérez MD on December 06, 2016 at 12:52 Board Certified Radiologist. This report was verified electronically.
--- NOTE | 2016-12-06 12:58 | RADHPO ---
EXAM DATE/TIME: 12/06/2016 11:34 [facility] COMPARISON: MRI BRAIN W/O CONTRAST, September 05, 2016, 20:33. INDICATIONS : Blackout. MEDICAL HISTORY : Hypertension. Congestive heart failure. Carcinoma, breast. CVAx2 SURGICAL HISTORY : Coronary artery stent. ENCOUNTER: Initial ACUITY: 2 day PAIN SCORE: 0/10 LOCATION: cranial TECHNIQUE: Multiplanar, multisequence MRI of the brain was performed without contrast. FINDINGS: CEREBRUM: The ventricles are normal for age. No evidence of midline shift, mass lesion, hemorrhage or acute in farction. No extraaxial fluid collections are seen. The pituitary gland and suprasellar cistern are normal in configuration. WHITE MATTER: Chronic periventricular and pontine white matter hyperintensity indicating chronic ischemic change. POSTERIOR FOSSA: The cerebellum and brainstem are intact. The 4th ventricle is midline. The cerebellopontine angle is unremarkable. The cerebellar tonsils are normal in position. DIFFUSION IMAGING: No focal areas of restricted diffusion are seen. No evidence of acute infarction. EXTRACRANIAL: The visualized portions of the orbits and paranasal sinuses are unremarkable. CONCLUSION: Chronic white matter ischemic change. No acute intracranial findings. Saulo Pérez MD on December 06, 2016 at 12:55 Board Certified Radiologist. This report was verified electronically.
--- NOTE | 2016-12-06 15:59 | EC ---
Study Study Date:12/06/2016 STUDY CONCLUSIONS SUMMARY - Procedure narrative: Transthoracic echocardiography. Image quality was good. Scanning was performed from the parasternal, apical, and subcostal acoustic windows. - Left ventricle: The cavity size was normal. Wall thickness was normal. Systolic function was normal. The estimated ejection fraction was in the range of 60% to 65%. Wall motion was normal; there were no regional wall motion abnormalities. - Mitral valve: Trace to mild regurgitation. - Tricuspid valve: Trace regurgitation. If LV function is below 40, please consider prescribing an ACEI or ARB or document rationale for non-use. PROCEDURE DATA STUDY STATUS: Elective. Procedure: Transthoracic echocardiography. Image quality was good. Scanning was performed from the parasternal, apical, and subcostal acoustic windows. Study completion: The patient tolerated the procedure well. Transthoracic echocardiography. M-mode, complete 2D, complete spectral Doppler, and color Doppler. Patient status: Inpatient. CARDIAC ANATOMY LEFT VENTRICLE: The cavity size was normal. Wall thickness was normal. Systolic function was normal. The estimated ejection fraction was in the range of 60% to 65%. Wall motion was normal; there were no regional wall motion abnormalities. AORTIC VALVE: Trileaflet; normal thickness leaflets. Doppler: Transvalvular velocity was within the normal range. There was no stenosis. No regurgitation. AORTA: Aortic root: The aortic root was normal in size. MITRAL VALVE: Structurally normal valve. Doppler: Transvalvular velocity was within the normal range. There was no evidence for stenosis. Trace to mild regurgitation. LEFT ATRIUM: The atrium was normal in size. RIGHT VENTRICLE: The cavity size was normal. Wall thickness was normal. PULMONIC VALVE: Doppler: Transvalvular velocity was within the normal range. There was no evidence for stenosis. No regurgitation. TRICUSPID VALVE: Structurally normal valve. Doppler: Transvalvular velocity was within the normal range. Trace regurgitation. PULMONARY ARTERY: The main pulmonary artery was normal-sized. Systolic pressure was within the normal range. RIGHT ATRIUM: The atrium was normal in size. PERICARDIUM: There was no pericardial effusion. SYSTEMIC VEINS: Inferior vena cava: The vessel was normal in size. BASIC MEASUREMENTS ADULT Normal Left ventricle LV internal dimension, ED, chordal level, *40.2 mm 43-52 PLAX LV internal dimension, ES, chordal level, 30.5 mm 23-38 PLAX Fractional shortening, chordal level, PLAX *24 % >29 LV posterior wall thickness, ED 6.71 mm IVS/LVPW ratio, ED 1.19 <1.3 Ventricular septum Septal thickness, ED 8 mm Aortic valve Leaflet separation 18 mm 15-26 Left atrium Anterior-posterior dimension 32 mm Right ventricle RV internal dimension, ED, PLAX 22.6 mm 19-38 BASIC MEASUREMENTS ADULT Normal Aortic valve Leaflet separation 18 mm 15-26 Aorta Root diameter, ED 33 mm 20-37 DOPPLER MEASUREMENTS ADULT Normal Main pulmonary artery Pressure, S 30 mm Hg =30 Mitral valve Peak E-wave velocity 61.4 cm/s Peak A-wave velocity 25.4 cm/s Peak E/A ratio 2.4 Tricuspid valve Regurgitant peak velocity 218 cm/s Peak RV-RA gradient, S 19 mm Hg Maximal regurgitant velocity 218 cm/s Systemic veins Estimated CVP 5 mm Hg Right ventricle RV pressure, S *30 mm Hg <30 LEGEND: Mean values are shown as u=mean value. Asterisk (*) murphy values outside specified normal range. Prepared and signed by Abraham Davalos [id number]
[2016-12-06] MEDS: ATORVASTATIN 10 MG TAB PO SCH (20:28)
[2016-12-07] VITALS (8 sets, daily range): BP systolic 112–194; BP diastolic 47–95; PULSE 51–70; RESP 18; TEMP 97–98.9; O2SAT 95–97
[2016-12-07] MEDS: NIACIN 500 MG EXTENDED RELEASE TAB PO SCH (08:35)
[2016-12-07] MEDS: SODIUM CHLORIDE 0.9% FLUSH 5 ML FLUSH FLUSH SCH ×2 (08:35→21:08)
[2016-12-07] MEDS: MULTIVITAMIN TAB PO SCH (08:35)
[2016-12-07] MEDS: ASPIRIN 325 MG TAB PO SCH (08:35)
[2016-12-07] MEDS: CARVEDILOL 6.25 MG TAB PO SCH (08:36)
[2016-12-07] MEDS ORDERED: cloNIDine HCL 0.1 MG TAB PO PRN (10:45)
--- NOTE | 2016-12-07 13:26 | HHI.PR ---
Subjective History of Present Illness Patient feel weak and tired d/w daughter at bed side BP High start Lisinopril 10 mg PO Daily c/o constipation started on Miralax and Colace PRN. Review of Systems Constitutional Constitutional: Fatigue, Weakness GI/Abdomen GI/Abdominal Exam: Constipation Vitals/Results Intake & Output 12/06/16 12/06/16 12/07/16 15:00 23:00 07:00 Intake Total 200 ml 0 ml Balance 200 ml 0 ml Intake IV Total 200 ml 0 ml # Voids 2 2 # Bowel Movements 0 Vital Signs Vital Signs Date Time Temp Pulse Resp B/P Pulse Ox O2 Delivery O2 Flow Rate FiO2 12/07/16 12:23 51 12/07/16 12:00 98.1 70 18 150/75 96 12/07/16 08:00 98.1 67 18 194/95 95 12/07/16 04:00 98.9 70 18 187/74 96 12/06/16 23:45 98.2 78 20 140/64 96 12/06/16 20:00 65 12/06/16 20:00 97.3 80 18 131/93 96 12/06/16 18:20 72 12/06/16 16:00 98.0 70 18 150/72 96 CBC/BMP: 12/06/16 0849 12/06/16 0849 Physical Exam General General Appearance: No Acute Distress, Comfortable Eyes Eye Exam: Pupils Equal, Pupils Reactive Throat Throat Exam: Oral Mucosa [place] & Moist, Oral Pharynx Normal Neck Neck Exam: Neck Supple, Trachea Midline Pulmonary Resp Exam: Clear Bilaterally, Breath Sounds Equal, No Distress Cardiology CV Exam: Regular, Normal Sinus Rhythm Gastrointestinal/Abdomen GI Exam: Soft, Non-Tender, Bowel Sounds Present Musculoskeletal MS Exam: Normal Tone Extremeties Extremities Exam: No Edema Neurologic Neuro Exam: Alert, Awake, Oriented Psychiatric Psych Exam: Appropriate Responses PUD Prophylasis PUD Prophylaxis: Protonix Assessment/Plan Assessment/Plan ASSESSMENT/PLAN 1. This is a 86-year female who came to the ER diagnosed with syncopal episode, unknown etiology, neurology, cardiology consulted. 2. A CT brain does not show anything acute. Further recommendation per neurology and cardiology. 3. History of coronary artery disease, currently using home medications. 4. History of stroke in the past, now her right side has a little weakness. 5. History of hyperlipidemia. continue with Lipitor 10 mg p.o. daily and niacin 500 mg p.o. daily. 6. History of arthritis. Continue with Tylenol. 7. History of cancer of the breast status post left lumpectomy. 8. DVT prophylaxis...Sequential compression devices. 9. Constipation started on Miralax and Colace PRN. 10. Gastrointestinal prophylaxis with Protonix 40 mg p.o. daily. 11. B12 deficiency. Continue with vitamin B12. 12.BP High.. home medicine + start Lisinopril 10 mg PO Daily We will monitor the patient daily basis and make recommendation daily basis. Discussed Condition with: Patient Gama Campa MD Dec 07, 2016 13:26
[2016-12-07] MEDS ORDERED: DOCUSATE SODIUM 100 MG CAP PO PRN (14:15)
[2016-12-07] MEDS: LISINOPRIL 10 MG TAB PO SCH (15:02)
--- NOTE | 2016-12-07 18:21 | MB ---
cc: ROMAIN PEÑALOZA M.D., BARTON G. DO DATE OF CONSULTATION: 12/07/2016. IMPRESSIONS: 1. Possible syncopal episode, details unknown. 2. Hypertension. 3. History of cerebrovascular disease. History of previous strokes. 4. Atherosclerotic heart disease, history of percutaneous coronary intervention with multiple stents, the record says four and the patient's daughter tells me she had five stents placed. 5. History of congestive heart failure. 6. Dyslipidemia. 7. Advanced age. 8. Suspect gait instability. 9. Breast cancer status post left-sided lumpectomy, no radiation given. 10. B12 deficiency, according to the chart. RECOMMENDATIONS: 1. Orthostatic blood pressures. 2. The patient has been mildly hypertensive during this admission and will adjust her medications. 3. I would recommend neurological consultation with an EEG to rule out seizure disorder in view of her history of cerebrovascular disease. 4. The patient may benefit from rehab. She appears to have gait instability. CLINICAL DATA: Mrs. Novak is a pleasant 86-year-old female originally from [place], [place] who is brought in after her daughter found her slumped over the toilet. The patient cannot provide much of a history. Her cardiac risk factors include known coronary artery disease, hypertension and dyslipidemia. She does not smoke and rarely drinks alcohol. She tells me that she had smoked in the past but is somewhat vague on the duration and amount that she did smoke. She has no history of diabetes but does have a history of dyslipidemia on atorvastatin. She has had no previous syncopal episodes. According nursing staff, she has had periods of bradycardia on carvedilol. MEDICATIONS: Her medicines at the time of admission included: 1. Aspirin 81 daily. 2. Carvedilol 6.25 twice a day. 3. Atorvastatin 10 at bedtime. 4. Niacin 500 daily. 5. B12 5000 micrograms daily. 6. A multivitamin. ALLERGIES: BISPHOSPHONATES. PAST SURGICAL HISTORY: 1. Cardiac catheterization with percutaneous coronary intervention. 2. Left breast lumpectomy. She apparently has normal / preserved left ventricular systolic function on an echocardiogram done this admission. Ejection fraction reportedly in the 60% to 65% range. She has no previous history of cardiac arrhythmias or atrial fibrillation. No history of pericardial heart disease. She has had at least three stroke. There is no history of seizures. There is no history of asthma or chronic bronchitis. No history of GI bleeding of acid peptic disease. No history of liver, gallbladder or kidney disease. The patient denies any recent chest discomfort. She has had some mild exertional dyspnea. She also complains of mild lower extremity edema. She has had no abdominal pain, significant back pain, et cetera. She has had no recent transient neurological deficits excepting her chief complaint on admission. She has had no amaurosis fugax. She has had no claudication but is quite sedentary. PHYSICAL EXAMINATION: GENERAL: The physical exam at this time demonstrates an alert oriented female. She is sitting up in bed. She has somewhat labored speech but is able to communicate and understand questions. VITAL SIGNS: Blood pressure 131/93, heart rate 65, afebrile. HEAD, EYES, EARS, NOSE, THROAT: Anicteric sclerae. Jugular venous pressures are normal. There are no carotid bruits currently noted. LUNGS: Her lung cunningham are clear anteriorly and laterally. ABDOMEN: Abdomen is soft, nontender. EXTREMITIES: Currently free of cyanosis, clubbing, edema. The posterior tibial pulses are 1+/4 through her support hose. Popliteal pulses are normal. EKGS: A 12-lead electrocardiogram on admission demonstrated sinus rhythm with PVCs and nonspecific ST-T changes. Ventricular axis is normal. LABORATORY DATA: Most recent white count 5600, hematocrit 41%, platelet count is 153,000. Lytes 142, 4.3, 105, 30 with a BUN of 10, creatinine 0.66, random glucose of 170 this morning although it 94 on the 24th. Troponins are negative x3. IMAGING STUDIES: A chest x-ray demonstrates cardiomegaly. There is a calcified aortic arch, calcified trachea and there appears to be a flattened diaphragms suggesting possible COPD / air trapping. DISCUSSION: This is an elderly debilitated 86-year-old female who was admitted to the hospital with a period of unresponsiveness apparently after using the toilet. This could be a cardiac arrhythmia. This could be a seizure. This could be a vasovagal episode. It is unclear how long she was on the toilet before being found by her daughter. RECOMMENDATIONS: As noted above. DO ARA Vicente/IFEANYI /4:51 PM /6:03 PM
[2016-12-07] MEDS: CARVEDILOL 3.125 MG TAB PO SCH (21:07)
[2016-12-07] MEDS: ATORVASTATIN 10 MG TAB PO SCH (21:08)
[2016-12-08] VITALS: BP 127/54; PULSE 70; RESP 18; TEMP 95.7; O2SAT 94
[2016-12-08 04:00] VITALS: BP 128/60; PULSE 69; RESP 18; TEMP 95.6; O2SAT 97
[2016-12-08 06:55] LABS: CHLORIDE 106 MEQ/L (98-107); SODIUM (NA) 142 MEQ/L (136-145)
[2016-12-08 07:12] LABS: ALKALINE PHOSPHATASE 99 U/L (45-117); ALT (GPT) 18 U/L (10-53); ANION GAP 7 MEQ/L (5-15); AST (GOT) 11 U/L (15-37); BICARBONATE 29.3 MEQ/L (21.0-32.0); BLOOD UREA NITROGEN 20 MG/DL (7-18); GLOMERULAR FILTRATION RATE 96 ML/MIN (>89); TOTAL BILIRUBIN ADULT 0.5 MG/DL (0.2-1.0)
[2016-12-08 07:23] LABS: AUTOMATED NEUTROPHIL # 5.5 TH/MM3 (1.8-7.7); BASOPHIL % 0.3 % (0.0-2.0); EOSINOPHIL # 0.3 TH/MM3 (0-0.4); HEMATOCRIT 42.9 % (35.0-46.0); HEMO FLAGS DIFF FINAL; LYMPH % 23.6 % (9.0-44.0); MEAN CELL VOLUME 86.2 FL (80.0-100.0); MEAN CORPUSCULAR HEMOGLOBIN 28.9 PG (27.0-34.0); MEAN CORPUSCULAR HGB CONC 33.5 % (32.0-36.0); MONO % 8.3 % (0.0-8.0); NEUT % 64.8 % (16.0-70.0); PLATELET COUNT 184 TH/MM3 (150-450); RED BLOOD COUNT 4.98 MIL/MM3 (4.00-5.30); RED CELL DISTRIBUTION WIDTH 13.4 % (11.6-17.2); WHITE BLOOD COUNT 8.5 TH/MM3 (4.0-11.0)
[2016-12-08 08:00] VITALS: BP 142/64; PULSE 67; RESP 18; TEMP 97.4; O2SAT 96
--- NOTE | 2016-12-08 08:30 | HHI.PR ---
Subjective History of Present Illness Patient feel weak and tired d/w daughter at bed side BP better on Lisinopril 10 mg PO Daily c/o constipation on Miralax and Colace PRN. Review of Systems Constitutional Constitutional: Fatigue, Weakness GI/Abdomen GI/Abdominal Exam: Constipation Vitals/Results Intake & Output 12/07/16 12/07/16 12/08/16 15:00 23:00 07:00 Intake Total 0 ml 0 ml Output Total 1 ml Balance -1 ml 0 ml 0 ml Intake IV Total 0 ml 0 ml Output Stool Total 1 ml # Voids 3 3 Vital Signs Vital Signs Date Time Temp Pulse Resp B/P Pulse Ox O2 Delivery O2 Flow Rate FiO2 12/08/16 08:00 97.4 67 18 142/64 96 12/08/16 04:00 95.6 69 18 128/60 97 12/08/16 00:00 95.7 70 18 127/54 94 12/07/16 20:00 97.0 62 18 112/47 97 12/07/16 19:49 55 12/07/16 18:17 148/62 12/07/16 16:00 98.2 60 18 171/65 96 12/07/16 12:23 51 12/07/16 12:00 98.1 70 18 150/75 96 CBC/BMP: 12/08/16 0622 12/08/16 0622 Lab Results Laboratory Tests Test 12/08/16 06:22 White Blood Count 8.5 TH/MM3 Red Blood Count 4.98 MIL/MM3 Hemoglobin 14.4 GM/DL Hematocrit 42.9 % Mean Corpuscular Volume 86.2 FL Mean Corpuscular Hemoglobin 28.9 PG Mean Corpuscular Hemoglobin 33.5 % Concent Red Cell Distribution Width 13.4 % Platelet Count 184 TH/MM3 Mean Platelet Volume 8.8 FL Neutrophils (%) (Auto) 64.8 % Lymphocytes (%) (Auto) 23.6 % Monocytes (%) (Auto) 8.3 % Eosinophils (%) (Auto) 3.0 % Basophils (%) (Auto) 0.3 % Neutrophils # (Auto) 5.5 TH/MM3 Lymphocytes # (Auto) 2.0 TH/MM3 Monocytes # (Auto) 0.7 TH/MM3 Eosinophils # (Auto) 0.3 TH/MM3 Basophils # (Auto) 0.0 TH/MM3 CBC Comment DIFF FINAL Differential Comment Erythrocyte Sedimentation Rate 2 mm/hr Sodium Level 142 MEQ/L Potassium Level 4.0 MEQ/L Chloride Level 106 MEQ/L Carbon Dioxide Level 29.3 MEQ/L Anion Gap 7 MEQ/L Blood Urea Nitrogen 20 MG/DL Creatinine 0.59 MG/DL Estimat Glomerular Filtration 96 ML/MIN Rate Random Glucose 98 MG/DL Calcium Level 8.8 MG/DL Total Bilirubin 0.5 MG/DL Aspartate Amino Transf 11 U/L (AST/SGOT) Alanine Aminotransferase 18 U/L (ALT/SGPT) Alkaline Phosphatase 99 U/L Total Protein 6.1 GM/DL Albumin 2.8 GM/DL Thyroid Stimulating Hormone 0.048 uIU/ML 3rd Gen Physical Exam General General Appearance: No Acute Distress, Comfortable Eyes Eye Exam: Pupils Equal, Pupils Reactive, Sclera White, Extraocular Movement Intact Throat Throat Exam: Oral Mucosa [place] & Moist, Oral Pharynx Normal Neck Neck Exam: Neck Supple, Trachea Midline Pulmonary Resp Exam: Clear Bilaterally, Breath Sounds Equal, No Distress Cardiology CV Exam: Regular, Normal Sinus Rhythm Gastrointestinal/Abdomen GI Exam: Soft, Non-Tender, Bowel Sounds Present Musculoskeletal MS Exam: Normal Tone Extremeties Extremities Exam: No Edema Neurologic Neuro Exam: Alert, Awake, Oriented Psychiatric Psych Exam: Appropriate Responses PUD Prophylasis PUD Prophylaxis: Protonix Assessment/Plan Assessment/Plan ASSESSMENT/PLAN 1. This is a 86-year female who came to the ER diagnosed with syncopal episode, unknown etiology, neurology, cardiology consulted. 2. A CT brain does not show anything acute. Further recommendation per neurology and cardiology. 3. History of coronary artery disease, currently using home medications. 4. History of stroke in the past, now her right side has a little weakness. 5. History of hyperlipidemia. continue with Lipitor 10 mg p.o. daily and niacin 500 mg p.o. daily. 6. History of arthritis. Continue with Tylenol. 7. History of cancer of the breast status post left lumpectomy. 8. DVT prophylaxis...Sequential compression devices. 9. Constipation on Miralax and Colace PRN. 10. Gastrointestinal prophylaxis with Protonix 40 mg p.o. daily. 11. B12 deficiency. Continue with vitamin B12. 12.BP High.. home medicine + Lisinopril 10 mg PO Daily We will monitor the patient daily basis and make recommendation daily basis. Discussed Condition with: Patient Gama Campa MD Dec 08, 2016 08:30
[2016-12-08] MEDS: SODIUM CHLORIDE 0.9% FLUSH 5 ML FLUSH FLUSH SCH ×2 (08:46→21:09)
[2016-12-08] MEDS: LISINOPRIL 10 MG TAB PO SCH (08:46)
[2016-12-08] MEDS: ASPIRIN 325 MG TAB PO SCH (08:46)
[2016-12-08] MEDS: NIACIN 500 MG EXTENDED RELEASE TAB PO SCH (08:46)
[2016-12-08] MEDS: MULTIVITAMIN TAB PO SCH (08:46)
[2016-12-08] MEDS: CARVEDILOL 3.125 MG TAB PO SCH ×2 (08:47→21:09)
[2016-12-08 10:03] LABS: HDL CHOLESTEROL 52.4 MG/DL (40.0-60.0); LDL CHOLESTEROL 39 MG/DL (0-99)
[2016-12-08 12:00] VITALS: BP 126/60; PULSE 64; RESP 18; TEMP 97.2; O2SAT 95
[2016-12-08 16:00] VITALS: BP 116/69; PULSE 63; RESP 18; TEMP 96.9; O2SAT 95
[2016-12-08 16:49] LABS: HEMOGLOBIN A1a 0.5 %; HEMOGLOBIN A1b 1.6 %; HEMOGLOBIN Ao 86.2 %; HEMOGLOBIN LA1C 1.9 %; HEMOGLOBIN P3 3.8 %
[2016-12-08 20:00] VITALS: BP 121/53; PULSE 62; PULSE 65; RESP 16; TEMP 97.9; O2SAT 96
[2016-12-08] MEDS: ATORVASTATIN 10 MG TAB PO SCH (21:09)
[2016-12-09] VITALS: BP 120/58; PULSE 65; RESP 16; TEMP 97.6; O2SAT 95
[2016-12-09 04:00] VITALS: BP 156/59; PULSE 67; RESP 18; TEMP 97.8; O2SAT 98
[2016-12-09 06:37] LABS: AUTOMATED NEUTROPHIL # 4.7 TH/MM3 (1.8-7.7); BASOPHIL % 0.5 % (0.0-2.0); EOSINOPHIL # 0.3 TH/MM3 (0-0.4); EOSINOPHIL % 4.2 % (0.0-4.0); HEMATOCRIT 42.9 % (35.0-46.0); HEMO FLAGS DIFF FINAL; LYMPH % 25.6 % (9.0-44.0); MEAN CELL VOLUME 86.7 FL (80.0-100.0); MEAN CORPUSCULAR HEMOGLOBIN 28.4 PG (27.0-34.0); MEAN CORPUSCULAR HGB CONC 32.7 % (32.0-36.0); MONO % 9.4 % (0.0-8.0); NEUT % 60.3 % (16.0-70.0); PLATELET COUNT 182 TH/MM3 (150-450); RED BLOOD COUNT 4.95 MIL/MM3 (4.00-5.30); RED CELL DISTRIBUTION WIDTH 13.6 % (11.6-17.2); WHITE BLOOD COUNT 7.7 TH/MM3 (4.0-11.0)
[2016-12-09 06:45] LABS: CHLORIDE 106 MEQ/L (98-107); POTASSIUM 4.1 MEQ/L (3.5-5.1); SODIUM (NA) 143 MEQ/L (136-145)
[2016-12-09 06:50] LABS: ANION GAP 8 MEQ/L (5-15); BLOOD UREA NITROGEN 24 MG/DL (7-18)
[2016-12-09 06:53] LABS: ALT (GPT) 18 U/L (10-53); AST (GOT) 10 U/L (15-37); GLOMERULAR FILTRATION RATE 95 ML/MIN (>89)
[2016-12-09 06:55] LABS: TOTAL BILIRUBIN ADULT 0.4 MG/DL (0.2-1.0)
[2016-12-09 06:56] LABS: ALKALINE PHOSPHATASE 103 U/L (45-117)
[2016-12-09] MEDS ORDERED: LISI-519 PO (07:52)
[2016-12-09] MEDS ORDERED: CARV3.125 PO (07:52)
[2016-12-09 08:08] VITALS: BP 145/58; PULSE 55; RESP 18; TEMP 95.7; O2SAT 93
[2016-12-09] MEDS: SODIUM CHLORIDE 0.9% FLUSH 5 ML FLUSH FLUSH SCH (08:14)
--- NOTE | 2016-12-09 09:27 | HHI.FF ---
Face to Face Verification Diagnosis: (1) CVA (cerebral vascular accident) (2) Physical deconditioning (3) HTN (hypertension) (4) Syncope Physical Therapy Order: Evaluate and Treat, Improve ambulation, Strength and gait training Occupational Therapy Order: Evaluate and Treat, Gross motor coordination Home Health Nursing Order: Medical education Medication education-adverse effect Home Health Aide Order: To Assist In: Bathing and personal care, material dispatcher and meal prep Customs Opener Verifier Packer Order: To Evaluate: Living conditions/environment I have seen patient Anisha Novak on 12/09/16. My clinical findings support the need for the requested home health care services because: Ltd mobility - disease progression Limited ability to care for self I certify that my clinical findings support that this patient is homebound because: Unsteady gait/balance Unsafe to leave home unassisted Gama Campa MD Dec 09, 2016 09:27
[2016-12-09] MEDS: MULTIVITAMIN TAB PO SCH (09:41)
[2016-12-09] MEDS: CARVEDILOL 3.125 MG TAB PO SCH (09:41)
[2016-12-09] MEDS: ASPIRIN 325 MG TAB PO SCH (09:41)
[2016-12-09] MEDS: NIACIN 500 MG EXTENDED RELEASE TAB PO SCH (09:41)
[2016-12-09 09:52] LABS: FREE T4 1.42 NG/DL (0.76-1.46)
[2016-12-09] MEDS ORDERED: LISINOPRIL 5 MG TAB PO SCH (14:00)
--- NOTE | 2016-12-09 16:35 | MG ---
cc: [facility] No: [id number] Date: 12/09/2016 Age: Sex: F Race: TECHNIQUE This is a 17 channel EEG. DESCRIPTION The background rhythm with a symmetrical alpha rhythm frequency is 8-10 Hz amplitude 20-30 microvolts during drowsiness there is slowing in the theta range. The patient does fall asleep and sleep spindles are identified with occasional vertex sharp waves. I do not see any lateralizing features and there are no epileptiform discharges present. Hyperventilation was not performed. Occasional muscle artifact is identified. Photic stimulation was done with a fairly well-developed symmetrical driving response. INTERPRETATION Normal EEG both in the wake and sleep state. MD ANGELO Hu/андрей /2:57 PM /4:33 PM
--- NOTE | 2016-12-14 17:02 | MD ---
cc: KASIA WILDER MD ADMISSION DATE: 12/05/2016 DISCHARGE DATE: 12/09/2016 DISPOSITION: Okay to discharge the patient home with home health care. CONDITION AT THE TIME OF DISCHARGE: Satisfactory. DISCHARGE ACTIVITY: Activity as tolerated. DISCHARGE DIET: Cardiac diet. ALLERGIES: BISPHOSPHONATES. MEDICATIONS: 1. Coreg 3.5 milligrams twice a day. 2. Lisinopril 5 milligrams p.o. daily. 3. Aspirin 325 milligrams p.o. daily. 4. Lipitor 10 milligrams p.o. daily. 5. Vitamin B12 5000 micrograms p.o. daily. 6. A multivitamins daily. 7. Niacin 500 milligrams p.o. daily. DISCHARGE FOLLOWUP: The patient was advised to see cardiology, neurology and the primary care physician within a week. ADMITTING DIAGNOSIS: 1. Syncopal episode of unknown etiology. Neurology and cardiology had seen the patient. CT brain does not show anything acute. MRI of the brain does not show anything acute. 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 The patient had carotid ultrasound done that shows no evidence for hemodynamically significant stenosis, mild atherosclerotic plaquing is noted bilaterally. HOSPITAL COURSE: The patient remained stable during the hospital stay. No acute events happened. Discussed the whole condition with the daughter at the bedside. The patient has other comorbidities that include coronary artery disease, stroke in the past with right-sided weakness, history of hyperlipidemia, difficulty speaking because of the stroke, history of arthritis, history of cancer of the breast status post left lumpectomy. The patient had a constipation during the hospital stay and was given MiraLax and Colace. The patient remained stable. The patient's blood pressure was high. The patient was started on lisinopril initially 10 milligrams which was decreased down to 5 milligrams p.o. daily and also the Coreg dose was decreased from 6.25 to 3.125 milligrams by the straight line press setter. Cardiology and neurology had seen the patient during the hospital stay. Dr. Digna Martin had seen the patient during the hospital stay and recommended MRI and MRA of the brain and a 2-D echo. The patient was advised to follow up with these consultants as an outpatient. Further details in the medical record. MD SAMUEL Holm /7:56 AM /4:53 PM
[2017-02-04] MEDS ORDERED: CYANOCOBALAMIN 1,000 MCG TAB PO SCH (09:00)
== END 2016-12-09 13:12 | disposition home or self-care (01) ==
LOC: PHED 19:00 → INTOOBSV 21:56 → PHEDA 21:56 → PH3A 23:08
PROVIDERS: ADMIT Family Medicine; ATTEND Family Medicine
DX: R55 Syncope and collapse (principal); I69.351 Hemiplegia and hemiparesis following cerebral infarction affecting right dominant side; I25.10 Atherosclerotic heart disease of native coronary artery without angina pectoris; I10 Essential (primary) hypertension; E78.5 Hyperlipidemia, unspecified; C50.912 Malignant neoplasm of unspecified site of left female breast; E53.8 Deficiency of other specified B group vitamins; K59.00 Constipation, unspecified; R94.31 Abnormal electrocardiogram [ECG] [EKG]; E78.00 Pure hypercholesterolemia, unspecified; Z79.899 Other long term (current) drug therapy; Z95.5 Presence of coronary angioplasty implant and graft
CPT/HCPCS: 70450; 70544; 70551; 71010; 80048; 80053; 80061; 81001; 82607; 83036; 83880; 84439; 84443; 84484; 85025; 85610; 85652; 85730; 86592; 93005; 93306; 93880; 95819; 97110; 97116; 97162; 99285; G0378; G8987; G8988; J7030

== ENCOUNTER → 2017-03-26 | Outpatient (CLI) | payer MEDICARE, BC ==
[~2017-03-26] MED LIST changes: +APIX2.5T PO; +CARV3.125 PO; -CARV6.25 PO; +CEFU1TAB20 PO; -CEPH-460 PO; +LISI-519 PO; +METO25TA3 PO; +NIAC500T5 PO
[2017-03-26 09:21] LABS: BICARBONATE 31.2 MEQ/L (21.0-32.0); POTASSIUM 4.2 MEQ/L (3.5-5.1)
[2017-03-26 09:48] LABS: HDL CHOLESTEROL 74.3 MG/DL (40.0-60.0)
== END ==
LOC: PLAB 07:33
PROVIDERS: ATTEND Family Medicine
DX: E78.2 Mixed hyperlipidemia (principal); I10 Essential (primary) hypertension; D51.9 Vitamin B12 deficiency anemia, unspecified; Z79.899 Other long term (current) drug therapy
CPT/HCPCS: 36415; 80048; 80061; 82607; 84450

== ENCOUNTER 2017-04-11 16:29 | Observation (INO) | payer MEDICARE, BC ==
[~2017-04-11] VITALS: Ht 162.6 cm; Wt 70.0 kg
[~2017-04-11 16:29] MED LIST changes: -APIX2.5T PO; -CEFU1TAB20 PO; -METO25TA3 PO; -NIAC500T5 PO
[2017-04-11 16:36] VITALS: BP 188/73; PULSE 51; RESP 16; TEMP 97.4
[2017-04-11] MEDS ORDERED: SODIUM CHLOR 0.9% 1000 ML INJ 1,000 ML IV ONE (16:40)
[2017-04-11] MEDS ORDERED: APIX2.5T PO (17:00)
[2017-04-11] MEDS ORDERED: NIAC500T5 PO (17:00)
[2017-04-11] MEDS ORDERED: METO25TA3 PO (17:00)
--- NOTE | 2017-04-11 17:02 | RADRPT ---
EXAM DATE/TIME: 04/11/2017 16:52 [facility] COMPARISON: CHEST SINGLE AP, December 05, 2016, 20:24. INDICATIONS : Weakness. Syncope. MEDICAL HISTORY : None. SURGICAL HISTORY : None. ENCOUNTER: Initial ACUITY: 1 day PAIN SCORE: 6/10 LOCATION: Bilateral chest FINDINGS: A single view of the chest demonstrates the lungs to be symmetrically aerated without evidence of mas s, infiltrate or effusion. The cardiomediastinal contours are unremarkable. There is degenerative ch valente at the glenohumeral joints bilaterally being worse on the left. Degenerative changes also seen i n the thoracic spine. CONCLUSION: No acute disease. Jose Guerrero MD on April 11, 2017 at 16:58 Board Certified Radiologist. This report was verified electronically.
--- NOTE | 2017-04-11 17:03 | RADRPT ---
EXAM DATE/TIME: 04/11/2017 16:55 [facility] COMPARISON: No previous studies available for comparison. INDICATIONS : Fall. Pelvic pain. MEDICAL HISTORY : None. SURGICAL HISTORY : None. ENCOUNTER: Initial ACUITY: 1 day PAIN SCORE: 7/10 LOCATION: Bilateral pelvis FINDINGS: The hip joints, pubic symphysis and sacroiliac joints appear intact. The proximal femurs appear intac t. There is a questionable lucency of the superior pubic rami on the right. No other lucencies are se en. There is degenerative change in lumbar spine. CONCLUSION: Questionable lucency at the superior pubic rami on the right. Fracture cannot be ruled out. Jose Guerrero MD on April 11, 2017 at 16:59 Board Certified Radiologist. This report was verified electronically.
[2017-04-11 17:10] LABS: AUTOMATED NEUTROPHIL # 15.7 TH/MM3 (1.8-7.7); BASOPHIL % 0.1 % (0.0-2.0); EOSINOPHIL # 0.1 TH/MM3 (0-0.4); EOSINOPHIL % 0.5 % (0.0-4.0); HEMATOCRIT 43.5 % (35.0-46.0); HEMO FLAGS DIFF FINAL; LYMPH % 10.3 % (9.0-44.0); LYMPHOCYTE # 1.9 TH/MM3 (1.0-4.8); MEAN CELL VOLUME 88.1 FL (80.0-100.0); MEAN CORPUSCULAR HEMOGLOBIN 29.1 PG (27.0-34.0); NEUT % 85.1 % (16.0-70.0); PLATELET COUNT 211 TH/MM3 (150-450); RED BLOOD COUNT 4.93 MIL/MM3 (4.00-5.30); RED CELL DISTRIBUTION WIDTH 15.4 % (11.6-17.2); WHITE BLOOD COUNT 18.4 TH/MM3 (4.0-11.0)
[2017-04-11 17:21] LABS: INTERNATIONAL NORMALIZED RATIO 0.9 RATIO; PROTHROMBIN TIME - PATIENT 10.4 SEC (9.8-11.6)
--- NOTE | 2017-04-11 17:21 | PD ---
HPI Chief Complaint: Syncope/Near-Syncope Time Seen by Provider: 17:15 Travel History International Travel<30 days: No Contact w/Intl Traveler<30days: No Traveled to known affect area: No History of Present Illness HPI 87-year-old female that presents to the ED for evaluation of syncope. Patient has a chronic history of dementia and uses a walker to ambulate. Patient comes here by ambulance and family states the patient apparently was using her walker to get about and hour or so and she just "passed out and fell into her butt and possibly her head. They're not sure about the head injury but they're positive that she did land on her butt. She didn't loss consciousness but less than 1 minute. She has a history of syncope in the past and on her last admission she was found to be in A. fib. Some of her medications were changed. Per family and patient she has pain only on her butt. She denies any headache. No blurry vision or double vision. No neck pain. No back pain. She does have a history of osteoporosis. She was not able to get herself back up. She denies any chest discomfort or palpitations before the fall. On examination patient appears to be alert and oriented and responds to questions a properly. She does have some moments of confusion but they seem to wane. Per Family member this is normal for her. The patient her pain is 4 out of 10. She does take blood thinners. PFSH Past Medical History Hx Anticoagulant Therapy: Yes (asa 325mg) Arthritis: Yes Blood Disorders: No Anxiety: No Depression: No Heart Rhythm Problems: No Cancer: Yes (Breast lumpectomy caught early, good follow up ) Cardiac Catheterization: Yes (4 stents last 2007) Cardiovascular Problems: Yes (htn; stents) High Cholesterol: Yes Chemotherapy: No Chest Pain: No Congestive Heart Failure: Yes (2006) Cerebrovascular Accident: Yes (cvax3) Coronary Artery Disease: Yes Diabetes: No Diminished Hearing: No Endocrine: No Gastrointestinal Disorders: No Genitourinary: No Hypertension: Yes Immune Disorder: No Implanted Vascular Access Dvce: Yes Musculoskeletal: Yes (Walks with shuffle, Left side affected by stroke, does ADLs ) Neurologic: Yes (2 strokes 2002 & 2005) Psychiatric: No Reproductive: No Respiratory: Yes Radiation Therapy: No Thyroid Disease: No Tetanus Vaccination: Unknown ?: Not Menopausal: Yes Past Surgical History Body Medical Devices: Stents in the heart Cardiac Surgery: Yes (Stent placement in 2007 and 2011) Pacemaker: No Other Surgery: Yes (Lumpectomy early cancer 2011, Breast biopsy 1999 neg, Stents ) Social History Alcohol Use: No Tobacco Use: No Substance Use: No Allergies-Medications (Allergen,Severity, Reaction): Coded Allergies: Bisphosphonates (Verified Allergy, Severe, ALLERGY TO BONIVA-HYPOTENSION, 01/24/15) Reported Meds & Prescriptions Reported Meds & Active Scripts Active Lisinopril 5 Mg Tab 5 Mg PO DAILY@14 Coreg (Carvedilol) 3.125 Mg Tab 3.125 Mg PO BID Aspirin 325 Mg Tab 325 Mg PO DAILY Reported Eliquis (Apixaban) 2.5 Mg Tab 2.5 Mg PO DAILY Metoprolol Tartrate 25 Mg Tab 25 Mg PO BID Niacin 500 Mg Tab 500 Mg PO DAILY Atorvastatin (Atorvastatin Calcium) 10 Mg Tab 10 Mg PO HS Niacin 500 Mg Tab 500 Mg PO DAILY Vitamin B-12 (Cyanocobalamin) 5,000 Mcg Tab 5,000 Mcg PO DAILY Multiple Vitamin 1 Tab 1 Tab PO DAILY Review of Systems Except as stated in HPI: all other systems reviewed are Neg Physical Exam Narrative GENERAL: SKIN: Warm and dry. HEAD: Atraumatic. Normocephalic. EYES: Pupils equal and round 4 mm reactive to light and accommodation. No scleral icterus. No injection or drainage. ENT: No nasal bleeding or discharge. Mucous membranes pink and moist. Tongue is midline. No uvula deviation. NECK: Trachea midline. No JVD. CARDIOVASCULAR: Regular rate and rhythm. No murmurs, S3, S4. RESPIRATORY: No accessory muscle use. Clear to auscultation. Breath sounds equal bilaterally. GASTROINTESTINAL: Abdomen soft, non-tender, nondistended. Hepatic and splenic margins not palpable. MUSCULOSKELETAL: Extremities without clubbing, cyanosis, or edema. No obvious deformities. Full range of motion of the upper and lower extremities bilaterally. 2+ pulses bilaterally. No lumbar, thoracic, cervical spine tenderness to palpation. No obvious deformity noted. Able to move both legs with no obvious sign of discomfort. NEUROLOGICAL: Awake and alert and oriented 4. No obvious cranial nerve deficits. Motor grossly within normal limits. Five out of 5 muscle strength in the arms and legs. Normal speech. PSYCHIATRIC: Appropriate mood and affect; insight and judgment normal. Data Data Last Documented VS Vital Signs Date Time Temp Pulse Resp B/P Pulse Ox O2 Delivery O2 Flow Rate FiO2 04/11/17 17:35 98 04/11/17 17:35 59 18 175/72 65 18 177/73 71 179/74 04/11/17 16:40 Room Air 04/11/17 16:36 97.4 Orders Electrocardiogram (04/11/17 16:40) Basic Metabolic Panel (Bmp) (04/11/17 16:40) Complete Blood Count With Diff (04/11/17 16:40) Magnesium (Mg) (04/11/17 16:40) Troponin I (04/11/17 16:40) Act Partial Throm Time (Ptt) (04/11/17 16:40) Prothrombin Time / Inr (Pt) (04/11/17 16:40) Urinalysis - C+S If Indicated (04/11/17 16:40) Chest, Single Ap (04/11/17 16:40) Ct Brain W/O Iv Contrast(Rout) (04/11/17 16:40) Blood Glucose (04/11/17 16:40) Ecg Monitoring (04/11/17 16:40) Iv Access Insert/Monitor (04/11/17 16:40) Oximetry (04/11/17 16:40) Sodium Chlor 0.9% 1000 Ml Inj (Ns 1000 M (04/11/17 16:40) Pelvis, Ap Only (Routine) (04/11/17 ) Orthostatic Vital Signs (04/11/17 16:42) Ct Pelvis W/O Iv Contrast (04/11/17 ) Cath For Specimen (04/11/17 17:56) Blood Culture (04/11/17 17:58) Lactic Acid (04/11/17 17:58) Urine Culture (04/11/17 18:00) Ceftriaxone Inj (Rocephin Inj) (04/11/17 19:00) Admit Order (Ed Use Only) (04/11/17 19:32) Consult Cardiology (04/11/17 ) Labs Laboratory Tests Test 04/11/17 04/11/17 04/11/17 16:45 18:00 18:08 White Blood Count 18.4 TH/MM3 Red Blood Count 4.93 MIL/MM3 Hemoglobin 14.3 GM/DL Hematocrit 43.5 % Mean Corpuscular Volume 88.1 FL Mean Corpuscular Hemoglobin 29.1 PG Mean Corpuscular Hemoglobin 33.0 % Concent Red Cell Distribution Width 15.4 % Platelet Count 211 TH/MM3 Mean Platelet Volume 9.1 FL Neutrophils (%) (Auto) 85.1 % Lymphocytes (%) (Auto) 10.3 % Monocytes (%) (Auto) 4.0 % Eosinophils (%) (Auto) 0.5 % Basophils (%) (Auto) 0.1 % Neutrophils # (Auto) 15.7 TH/MM3 Lymphocytes # (Auto) 1.9 TH/MM3 Monocytes # (Auto) 0.7 TH/MM3 Eosinophils # (Auto) 0.1 TH/MM3 Basophils # (Auto) 0.0 TH/MM3 CBC Comment DIFF FINAL Differential Comment Prothrombin Time 10.4 SEC Prothromb Time International 0.9 RATIO Ratio Activated Partial 31.0 SEC Thromboplast Time Sodium Level 139 MEQ/L Potassium Level 4.4 MEQ/L Chloride Level 102 MEQ/L Carbon Dioxide Level 32.7 MEQ/L Anion Gap 4 MEQ/L Blood Urea Nitrogen 16 MG/DL Creatinine 0.56 MG/DL Estimat Glomerular Filtration 102 ML/MIN Rate Random Glucose 86 MG/DL Calcium Level 9.9 MG/DL Magnesium Level 1.9 MG/DL Troponin I LESS THAN 0.02 NG/ML Urine Color YELLOW Urine Turbidity HAZY Urine pH 6.5 Urine Specific [place] 1.007 Urine Protein NEG mg/dL Urine Glucose (UA) NEG mg/dL Urine Ketones NEG mg/dL Urine Occult Blood SMALL Urine Nitrite NEG Urine Bilirubin NEG Urine Urobilinogen LESS THAN 2.0 MG/DL Urine Leukocyte Esterase MOD Urine RBC 9 /hpf Urine WBC 9 /hpf Urine Squamous Epithelial <1 /hpf Cells Urine Bacteria FEW /hpf Urine Mucus FEW /lpf Microscopic Urinalysis Comment CULTURE INDICATED Lactic Acid Level 1.1 mmol/L [facility] Medical Decision Making Medical Screen Exam Complete: Yes Emergency Medical Condition: Yes Medical Record Reviewed: Yes Interpretation(s) Last Impressions Head CT 04/11/17 1640 Signed Impressions: Service Date/Time: Tuesday, April 11, 2017 17:10 - CONCLUSION: No acute abnormality seen. There is age-related atrophy, encephalomalacia of the right occipital lobe and suspected small vessel ischemic change in the white matter. Jose Guerrero MD Chest X-Ray 04/11/17 1640 Signed Impressions: Service Date/Time: Tuesday, April 11, 2017 16:52 - CONCLUSION: No acute disease. Jose Guerrero MD Pelvis X-Ray 04/11/17 0000 Signed Impressions: Service Date/Time: Tuesday, April 11, 2017 16:55 - CONCLUSION: Questionable lucency at the superior pubic rami on the right. Fracture cannot be ruled out. Jose Guerrero MD Pelvis CT 04/11/17 0000 Signed Impressions: Service Date/Time: Tuesday, April 11, 2017 17:21 - CONCLUSION: No fracture seen. Jose Guerrero MD CBC & BMP Diagram 04/11/17 16:45 UA shows possible UTI troponin and CKMB negative EKG shows sinus rhythm with no sign of acute ischemia, bradycardia noted. Read by me and attending. Differential Diagnosis Syncope versus CVA versus head injury versus fracture versus orthostatic hypotension versus UTI versus bleed versus chest pain versus ACS Narrative Course 87-year-old female that presents to the ED for evaluation of syncope. Patient was properly examined and was found to have signs and symptoms very consistent what appears to be syncope. Unclear etiology to the syncope. Patient possibly might have hit head. Patient does take liquids. Mental status for labs and imaging and further workup of the syncope. Family member at bedside states the patient has had multiple falls mainly mechanical in the past 2 weeks. Approximately about 5. This is the first fall where she actually has passed out before she fell. Which is what prompted her evaluation here. Family is concerned. Family is also wondering if patient can be placed once she is stabilized. Patient and family agree with plan. Labs and imaging ordered. Labs and imaging showed Leukocystosis, UTI. Otherwise unremarcable. Recommendations for admission. [facility] hospitalist was contacted and Dr. Jesus agrees to admission. He wanted me to put a consult to the patient's merchandise presentation manager. This was placed by me. Procedures EKG Prior to Arrival: No Diagnosis Primary Impression: Syncope Qualified Code: R55 - Syncope, unspecified syncope type Additional Impression: UTI (urinary tract infection) Qualified Code: N30.00 - Acute cystitis without hematuria Admitting Information Admitting Physician Requests: Admit Riki Sneed Apr 11, 2017 17:21
[2017-04-11 17:29] LABS: ANION GAP 4 MEQ/L (5-15); BICARBONATE 32.7 MEQ/L (21.0-32.0); BLOOD UREA NITROGEN 16 MG/DL (7-18); CHLORIDE 102 MEQ/L (98-107); GLOMERULAR FILTRATION RATE 102 ML/MIN (>89); MAGNESIUM 1.9 MG/DL (1.5-2.5); POTASSIUM 4.4 MEQ/L (3.5-5.1); SODIUM (NA) 139 MEQ/L (136-145)
--- NOTE | 2017-04-11 17:30 | RADRPT ---
EXAM DATE/TIME: 04/11/2017 17:10 [facility] COMPARISON: CT BRAIN W/O CONTRAST, December 05, 2016, 20:26. INDICATIONS : Syncopal episode with fall. RADIATION DOSE: 30.23 CTDIvol (mGy) MEDICAL HISTORY : Cardiovascular disease. Stroke Hypertension. SURGICAL HISTORY : None. ENCOUNTER: Initial ACUITY: 1 day PAIN SCALE: 0/10 LOCATION: cranial TECHNIQUE: Multiple contiguous axial images were obtained of the head. Using automated exposure control and adj ustment of the mA and/or kV according to patient size, radiation dose was kept as low as reasonably a chievable to obtain optimal diagnostic quality images. DICOM format image data is available electro nically for review and comparison. FINDINGS: CEREBRUM: The ventricles are normal for age. The cortical sulci are widened. There is an area of encephalomala rich at the right occipital lobe. There is decreased density in the periventricular white matter. No e vidence of midline shift, mass lesion, hemorrhage or acute infarction. No extra-axial fluid collecti ons are seen. POSTERIOR FOSSA: The cerebellum and brainstem are intact. The 4th ventricle is midline. The cerebellopontine angle i s unremarkable. EXTRACRANIAL: The visualized portion of the orbits is intact. SKULL: The calvaria is intact. No evidence of skull fracture. CONCLUSION: No acute abnormality seen. There is age-related atrophy, encephalomalacia of the right occipital lobe and suspected small vessel ischemic change in the white matter. Jose Guerrero MD on April 11, 2017 at 17:26 Board Certified Radiologist. This report was verified electronically.
[2017-04-11 17:35] VITALS: BP_SYST 175; BP_SYST 177; BP_SYST 179; BP_DIAS 72; BP_DIAS 73; BP_DIAS 74; RESP 18; O2SAT 98
--- NOTE | 2017-04-11 17:39 | RADRPT ---
EXAM DATE/TIME: 04/11/2017 17:21 [facility] COMPARISON: No previous studies available for comparison. INDICATIONS : Fall, bilateral hip pain. ORAL CONTRAST: No oral contrast ingested. RADIATION DOSE: 18.02 CTDIvol (mGy) MEDICAL HISTORY : Cardiovascular disease. Stroke Hypertension. SURGICAL HISTORY : None. ENCOUNTER: Initial ACUITY: 1 day PAIN SCALE: 5/10 LOCATION: Bilateral pelvis TECHNIQUE: Volumetric scanning of the pelvis was performed. Using automated exposure control and adjustment of the mA and/or kV according to patient size, radiation dose was kept as low as reasonably achievable t o obtain optimal diagnostic quality images. DICOM format image data is available electronically for review and comparison. FINDINGS: BOWEL/MESENTERY: The visualized small and large bowel demonstrate no acute abnormality. There is no free fluid. There are diverticula in the sigmoid region. BLADDER: There is no wall thickening or mass. RETROPERITONEUM: There is no aneurysm or lymphadenopathy. REPRODUCTIVE: Within normal limits. INGUINAL: There is no lymphadenopathy or hernia. MUSCULOSKELETAL: No fracture is seen. The hip joints are normally aligned. There is degenerative change at the lumbar spine. CONCLUSION: No fracture seen. Jose Guerrero MD on April 11, 2017 at 17:31 Board Certified Radiologist. This report was verified electronically.
[2017-04-11 18:44] LABS: BACTERIA, URINE FEW /hpf; BLOOD, URINE SMALL (NEG); COMMENT (UR) CULTURE INDICATED; CULTURE IF INDICATED CULTURE INDICATED; GLUCOSE,URINE NEG (NEG); KETONE, URINE NEG (NEG); MUCUS URINE FEW /lpf (OCC); NITRITE,URINE NEG (NEG); PH, URINE 6.5 (5.0-8.5); SQUAMOUS EPITHELIAL CELL URINE <1 /hpf (0-5); URINE COLOR YELLOW (YELLW/STRAW)
[2017-04-11] MEDS ORDERED: cefTRIAXone INJ 1,000 MG in SODIUM CHLORIDE 0.9% INJ 100 ML IV ONE (19:00)
[2017-04-11] MEDS ORDERED: NALOXONE HCL 0.4 MG/ML AMP IV PRN (21:30)
[2017-04-11] MEDS ORDERED: ACETAMINOPHEN 325 MG TAB PO PRN (21:30)
[2017-04-11] MEDS ORDERED: SODIUM CHLORIDE 0.9% FLUSH 10 ML FLUSH IV FLUSH PRN (21:30)
[2017-04-11] MEDS ORDERED: SENNOSIDES 8.6 MG TAB PO PRN (21:30)
[2017-04-11] MEDS ORDERED: BISACODYL 10 MG SUPP RECTAL PRN (21:30)
[2017-04-11] MEDS ORDERED: ONDANSETRON HCL 4 MG/2 ML VIAL IVP PRN (21:30)
[2017-04-11 21:40] VITALS: BP 155/88; PULSE 51; RESP 18; O2SAT 95
[2017-04-12] VITALS (7 sets, daily range): BP systolic 126–172; BP diastolic 60–81; PULSE 60–90; RESP 17–18; TEMP 97.6–98.1; O2SAT 96–99
[2017-04-12] MEDS: HEPARIN SODIUM - SQ 10,000 UNITS/ML VIAL SQ SCH ×3 (00:20→21:02)
[2017-04-12] MEDS: SODIUM CHLOR 0.9% 1000 ML INJ 1,000 ML IV SCH ×2 (00:29→18:41)
--- NOTE | 2017-04-12 07:16 | PD ---
Data Data Last Documented VS Vital Signs Date Time Temp Pulse Resp B/P Pulse Ox O2 Delivery O2 Flow Rate FiO2 04/11/17 17:35 98 04/11/17 17:35 59 18 175/72 65 18 177/73 71 179/74 04/11/17 16:40 Room Air 04/11/17 16:36 97.4 Orders Electrocardiogram (04/11/17 16:40) Basic Metabolic Panel (Bmp) (04/11/17 16:40) Complete Blood Count With Diff (04/11/17 16:40) Magnesium (Mg) (04/11/17 16:40) Troponin I (04/11/17 16:40) Act Partial Throm Time (Ptt) (04/11/17 16:40) Prothrombin Time / Inr (Pt) (04/11/17 16:40) Urinalysis - C+S If Indicated (04/11/17 16:40) Chest, Single Ap (04/11/17 16:40) Ct Brain W/O Iv Contrast(Rout) (04/11/17 16:40) Blood Glucose (04/11/17 16:40) Ecg Monitoring (04/11/17 16:40) Iv Access Insert/Monitor (04/11/17 16:40) Oximetry (04/11/17 16:40) Sodium Chlor 0.9% 1000 Ml Inj (Ns 1000 M (04/11/17 16:40) Pelvis, Ap Only (Routine) (04/11/17 ) Orthostatic Vital Signs (04/11/17 16:42) Ct Pelvis W/O Iv Contrast (04/11/17 ) Cath For Specimen (04/11/17 17:56) Blood Culture (04/11/17 17:58) Lactic Acid (04/11/17 17:58) Urine Culture (04/11/17 18:00) Ceftriaxone Inj (Rocephin Inj) (04/11/17 19:00) Admit Order (Ed Use Only) (04/11/17 19:32) Consult Cardiology (04/11/17 ) Labs Laboratory Tests Test 04/11/17 04/11/17 04/11/17 16:45 18:00 18:08 White Blood Count 18.4 TH/MM3 Red Blood Count 4.93 MIL/MM3 Hemoglobin 14.3 GM/DL Hematocrit 43.5 % Mean Corpuscular Volume 88.1 FL Mean Corpuscular Hemoglobin 29.1 PG Mean Corpuscular Hemoglobin 33.0 % Concent Red Cell Distribution Width 15.4 % Platelet Count 211 TH/MM3 Mean Platelet Volume 9.1 FL Neutrophils (%) (Auto) 85.1 % Lymphocytes (%) (Auto) 10.3 % Monocytes (%) (Auto) 4.0 % Eosinophils (%) (Auto) 0.5 % Basophils (%) (Auto) 0.1 % Neutrophils # (Auto) 15.7 TH/MM3 Lymphocytes # (Auto) 1.9 TH/MM3 Monocytes # (Auto) 0.7 TH/MM3 Eosinophils # (Auto) 0.1 TH/MM3 Basophils # (Auto) 0.0 TH/MM3 CBC Comment DIFF FINAL Differential Comment Prothrombin Time 10.4 SEC Prothromb Time International 0.9 RATIO Ratio Activated Partial 31.0 SEC Thromboplast Time Sodium Level 139 MEQ/L Potassium Level 4.4 MEQ/L Chloride Level 102 MEQ/L Carbon Dioxide Level 32.7 MEQ/L Anion Gap 4 MEQ/L Blood Urea Nitrogen 16 MG/DL Creatinine 0.56 MG/DL Estimat Glomerular Filtration 102 ML/MIN Rate Random Glucose 86 MG/DL Calcium Level 9.9 MG/DL Magnesium Level 1.9 MG/DL Troponin I LESS THAN 0.02 NG/ML Urine Color YELLOW Urine Turbidity HAZY Urine pH 6.5 Urine Specific [place] 1.007 Urine Protein NEG mg/dL Urine Glucose (UA) NEG mg/dL Urine Ketones NEG mg/dL Urine Occult Blood SMALL Urine Nitrite NEG Urine Bilirubin NEG Urine Urobilinogen LESS THAN 2.0 MG/DL Urine Leukocyte Esterase MOD Urine RBC 9 /hpf Urine WBC 9 /hpf Urine Squamous Epithelial <1 /hpf Cells Urine Bacteria FEW /hpf Urine Mucus FEW /lpf Microscopic Urinalysis Comment CULTURE INDICATED Lactic Acid Level 1.1 mmol/L [facility] Supervised Visit with GABRIEL: Yes Narrative Course The history, exam, and medical decision-making in the associated midlevel provider note were completed with my assistance. I reviewed and agree with the findings presented. I attest that I had a [id number] encounter with the patient on the same day, and personally performed and documented my assessment and findings in the medical record. *My assessment and Findings: This is an 87-year-old female who had an episode of syncope earlier today. She was found to have a leukocytosis of 18. She has a mild urinary tract infection. I went and personally examined the patient looking for soft tissue infection or alternate source of infection. I spoke with the daughter. I don't suspect meningitis and I don't appreciate any sacral decubitus ulcer alternate etiology of her symptoms. I think it is appropriate at this time to cover her for her UTI and closely monitor her in the hospital. Diagnosis Primary Impression: Syncope Qualified Code: R55 - Syncope, unspecified syncope type Additional Impression: UTI (urinary tract infection) Qualified Code: N30.00 - Acute cystitis without hematuria Gini Naranjo MD Apr 12, 2017 07:15
[2017-04-12 07:24] LABS: AUTOMATED NEUTROPHIL # 6.4 TH/MM3 (1.8-7.7); BASOPHIL % 0.3 % (0.0-2.0); EOSINOPHIL # 0.1 TH/MM3 (0-0.4); EOSINOPHIL % 1.3 % (0.0-4.0); HEMATOCRIT 39.1 % (35.0-46.0); HEMO FLAGS DIFF FINAL; LYMPHOCYTE # 1.5 TH/MM3 (1.0-4.8); MEAN CELL VOLUME 87.6 FL (80.0-100.0); MEAN CORPUSCULAR HEMOGLOBIN 29.8 PG (27.0-34.0); MEAN CORPUSCULAR HGB CONC 34.1 % (32.0-36.0); MONO % 4.9 % (0.0-8.0); NEUT % 75.5 % (16.0-70.0); PLATELET COUNT 195 TH/MM3 (150-450); RED BLOOD COUNT 4.47 MIL/MM3 (4.00-5.30); RED CELL DISTRIBUTION WIDTH 15.6 % (11.6-17.2); WHITE BLOOD COUNT 8.5 TH/MM3 (4.0-11.0)
--- NOTE | 2017-04-12 10:06 | MH ---
cc: MICHAEL DIALLO MD DATE OF ADMISSION: 04/11/2017 DATE OF : 1930 CHIEF COMPLAINT Evaluation for syncope. HISTORY OF PRESENT ILLNESS This is a pleasant 87-year-old white female with chronic dementia who was brought into the hospital by ambulance. Family states that she passed out, fell backwards and hit her bottom. The patient denies hitting her head but is a very poor historian and is answering some simple questions but does appear to have an advanced state of dementia. Most of this information is according to the record. The patient usually uses a walker at home. She tells me she has been in the hospital several times before. She denies any chest pain, no shortness of breath, no headache. The patient's speech is slow but understandable. She does open her eyes and respond to verbal stimuli but minimal conversation. PAST MEDICAL HISTORY 1. Aspirin. 2. Arthritis. 3. Dementia with some confusion. 4. Hard of hearing. 5. Breast mass. 6. Cardiovascular disease. 7. Hypertension. 8. Hyperlipidemia. 9. Congestive heart failure. 10. CVA x3. 11. Coronary artery disease. 12. She had a right CVA, her left side is affected with her ADLs. PAST SURGICAL HISTORY 1. Cardiac stents in 2007 and 2011. 2. Lumpectomy for early cancer in 2011. 3. Breast biopsy in 1999. ALLERGIES BIPHOSPHONATES, BONIVA. MEDICATION Active: 1. Lisinopril. 2. Coreg. 3. Aspirin. 4. Eliquis. 5. Metoprolol. 6. Niacin. 7. Atorvastatin. 8. Vitamins. SOCIAL HISTORY The patient lives with her daughter and they both live with another family in [place]. Negative for alcohol, tobacco or illicit drug use. REVIEW OF SYSTEMS Limited exam due to the patient's dementia. Noted positives are her CVA changes with slow speech. She fell, syncopal episode. She fell backwards hitting her butt. She states she did not hit her head. All other systems are negative or unremarkable. VITAL SIGNS: Temperature is 97.8, pulse 86, respirations 18, blood pressure 130/62, high on admission was 177/73, 02 sat 96 on room air. PHYSICAL EXAMINATION GENERAL: Elderly frail white female, looks to be at least her stated age, resting in the stretcher, no acute distress. SKIN: Thin turgor, pale, warm and dry. She does have some petechiae noted with some bruising and areas on her arms. HEENT: Atraumatic, normocephalic. PERRLA at 2. Mucous membranes are moist. No scleral icterus. NECK: Supple. CARDIOVASCULAR: S1, S2. No murmurs, rubs or gallops audible. Her heart rate palpated is regular. RESPIRATORY: Low to mid volumes, no cough. Essentially clear to auscultation. No wheezes or rhochni. ABDOMEN: Flat, soft, nontender, nondistended. Soft bowel sounds heard. MUSCULOSKELETAL: No edema. No obvious deformities. Pulses are intact. EXTREMITIES: Warm. She moves her extremities on command. NEUROLOGIC: She is awake to verbal stimuli. She does give simple information to some questions. Speech is slow but understandable. PSYCHIATRIC: Appropriate mood and affect. DIAGNOSTIC DATA Initially WBC count on admission was 18.4, now 8.5, RBC 4.47, hemoglobin 13.3, hematocrit 39.1, platelet count 195, neutrophil percentage 75.5. PT/INR 0.9. Chemistries, sodium 139, potassium 4.4, chloride 102, carbon dioxide 32.7, amnion gap 4, BUN 16, creatinine 0.56, lactic acid 1.1, calcium 9.9, magnesium 1.9. Troponins are negative, less than 0.02. Blood cultures and urine cultures are pending. Her urine shows a moderate amount of leukocyte esterase with a small amount of occult blood, protein, glucose, ketones, nitrites and bilirubin are negative. Her urine is yellow and hazy, PH is 6.5, specific gravity 1.007. IMAGING STUDIES Chest x-ray shows no acute disease. Head CT shows no acute abnormality, encephalomalacia on the right occipital lobe, suspect small vessel ischemic disease in the white matter. Pelvis CT shows no fracture. Pelvic x-ray shows questionable lucency of the superior pubic rami on the right, fracture cannot be ruled out but on CT there was no fracture. ASSESSMENT/PLAN 1. Syncopal episode with fall. 2. History of CVA. 3. UTI. 4. Debility with physical deconditioning. 5. Leukocytosis, unspecified. Our plan is to admit initially for observation, will monitor her vital signs q. 4, any activity out of bed will have to be with assistance. Will get PT to evaluate her. She got doses of Rocephin in the emergency room. Bowel regime will be managed. Home medications have been reconciled as far as her needs go. She has received IV fluids and will continue to receive them. Orthostatic vital signs to be done. Will consult cardiology for his expert opinion and evaluate her syncopal episodes. We ruled out heart attack with negative troponins, p.r.n. medications for her symptoms ordered. To my knowledge the patient is full code, full aggressive care. This may need to be discussed with the family, if the patient has a living will, but there is no family present now. Dictated by: FAISAL Pandey Michael Diallo MD JP/TLL /8:32 AM 8:59 AM Patient seen and examined as above [id number] time spent with patient Chart was reviewed Plan of care discussed with PODIATRIC FOOT AND ANKLE SPECIALIST in detail Condition guarded Plan for cardiology consult Plan for MRI Discussed with patient daughter at bedside in detail MOMOD
[2017-04-12] MEDS: SODIUM CHLORIDE 0.9% FLUSH 10 ML FLUSH IV FLUSH SCH ×2 (10:11→21:00)
--- NOTE | 2017-04-12 13:27 | EKG ---
Date Performed: 04/11/2017 Time Performed: 17:43:19 PTAGE: 87 years EKG: SINUS BRADYCARDIA BORDERLINE ECG PREVIOUS TRACING : 12/05/2016 20.11 Compared to prior tracing no significant change DOCTOR: Annetta Montana Interpretating Date/Time 04/12/2017 13:21:08
[2017-04-12] MEDS ORDERED: MAGNESIUM HYDROXIDE SUSP 30 ML CUP PO ONE (16:45)
--- NOTE | 2017-04-12 20:15 | RADRPT ---
EXAM DATE/TIME: 04/12/2017 19:32 [facility] COMPARISON: MRI BRAIN W/O CONTRAST, December 06, 2016, 11:34. INDICATIONS : Confusion. MEDICAL HISTORY : Hypertension. Dementia. SURGICAL HISTORY : Coronary artery stent. ENCOUNTER: Initial ACUITY: 1 day PAIN SCORE: 0/10 LOCATION: cranial TECHNIQUE: Multiplanar, multisequence MRI of the brain was performed without contrast. FINDINGS: CEREBRUM: The ventricles and cortical sulci are widened. There is expansion of the extra-axial spaces. There is encephalomalacia in medial right occipital lobe. No evidence of midline shift, mass lesion, hemorrha ge or acute infarction. The pituitary gland and suprasellar cistern are normal in configuration. WHITE MATTER: There is increased signal throughout the cerebral and pontine white matter. POSTERIOR FOSSA: The cerebellum and brainstem are intact. The 4th ventricle is midline. The cerebellopontine angle is unremarkable. The cerebellar tonsils are normal in position. DIFFUSION IMAGING: No focal areas of restricted diffusion are seen. No evidence of acute infarction. EXTRACRANIAL: The visualized portions of the orbits and paranasal sinuses are unremarkable. CONCLUSION: 1. No acute intracranial abnormalities. 2. Atrophy. 3. Demyelination in the cerebral and pontine white matter likely from small vessel ischemic change. 4. Encephalomalacia at the right occipital lobe. Jose Guerrero MD on April 12, 2017 at 20:10 Board Certified Radiologist. This report was verified electronically.
--- NOTE | 2017-04-12 20:16 | RADRPT ---
EXAM DATE/TIME: 04/12/2017 19:32 [facility] COMPARISON: MRA BRAIN W/O CONTRAST, December 06, 2016, 11:34. MRI BRAIN W/O CONTRAST, April 12, 2017, 19:32. INDICATIONS : Confusion. MEDICAL HISTORY : Hypertension. Dementia. Carcinoma, breast. CVA x3 SURGICAL HISTORY : Coronary artery stent. ENCOUNTER: Initial ACUITY: 1 day PAIN SCORE: 0/10 LOCATION: cranial Please note a normal MRA of the brain does not entirely exclude the possibility of a small aneurysm, nor the possibility of distal intracranial vessel disease. TECHNIQUE: 3D time of flight MRA was performed. Source images, multiplanar STS MIP, and 3D volume MIP reconstru ctions were reviewed. FINDINGS: There is excellent visualization of the major intracranial arteries out to the second-order branch ve ssels. There is no evidence for aneurysm, vessel truncation or stenosis, and no evidence for vascula r malformation. CONCLUSION: No acute disease. Jose Guerrero MD on April 12, 2017 at 20:13 Board Certified Radiologist. This report was verified electronically.
[2017-04-12] MEDS: METOPROLOL TARTRATE 25 MG TAB PO SCH (21:00)
[2017-04-12] MEDS: cefTRIAXone INJ 1,000 MG in SODIUM CHLORIDE 0.9% INJ 100 ML IV SCH (21:01)
[2017-04-12] MEDS: CARVEDILOL 3.125 MG TAB PO SCH (21:01)
[2017-04-12] MEDS: ATORVASTATIN 10 MG TAB PO SCH (21:01)
[2017-04-13 04:52] VITALS: BP 160/70; PULSE 60; RESP 20; TEMP 97; O2SAT 96
--- NOTE | 2017-04-13 06:14 | MB ---
cc: ROMAIN PEÑALOZA M.D. BRUCE DCBrittni MENDOZA DATE OF CONSULTATION April 12, 2017 IMPRESSIONS 1. Fall/syncope? 2. Dementia. 3. Atherosclerotic heart disease. She tells me that she has multiple stents. 4. Advanced age. 5. Hypertension. 6. Dyslipidemia. 7. History of stroke. RECOMMENDATIONS 1. In view of her general medical condition, I would recommend supportive care only, telemetry. 2. The patient needs to have a relatively recent echocardiogram. 3. I would continue her medications at home. 4. Check orthostatic blood pressures. 5. I would also check a TSH as she was somewhat bradycardic. CLINICAL DATA The patient is an 87-year-old female who is seen in the emergency room after either passing out or falling at home. No family is available and the patient is unable to give much of a history. According to the H&P from Dr. Diallo, the family states she did pass out and fell backwards. Apparently there was no head trauma. The patient apparently does live at home. She has gait instability and walks with a walker. She has a history of atherosclerotic heart disease. She denies a history of myocardial infarction, but according to the H&P she has a history of congestive heart failure. She states she has multiple stents and Dr. Peñaloza is her electronics recycler. SOCIAL HISTORY She does not smoke. She does not use alcohol. REVIEW OF SYSTEMS CONSTITUTIONAL: She does have a history of dyslipidemia. HEENT: She has a history of multiple strokes. RESPIRATORY: She has no history of lung disease. BREASTS: She had breast cancer and has had a lumpectomy. It is unclear what the status of her therapy is for this problem. GASTROINTESTINAL: She has no history of GI bleeding, acid peptic disease. There is no history of liver or gallbladder disease. GENITOURINARY: There is no history of renal failure according to the patient. CARDIOVASCULAR: She denies chest pain. She denies shortness of breath or lower extremity edema. PSYCHIATRIC: She does not actually know why she is in the hospital and cannot recall how she got here. PHYSICAL EXAMINATION GENERAL: At this time demonstrates an alert, oriented female in no apparent distress. VITAL SIGNS: Most recent blood pressure 175/70, heart rate is 60. HEENT EXAM: Anicteric sclerae. NECK: Jugular venous pressures are not elevated. I cannot auscultate any carotid bruits but the exam is limited. LUNGS: She has clear lung cunningham. CARDIAC EXAM: Regular rate and rhythm, a 1/6 systolic ejection murmur. No diastolic murmurs. ABDOMEN: Soft, nontender. EXTREMITIES: Free of cyanosis, clubbing or edema. LABORATORY EVALUATION 'Lytes; 134, 4.4, 102, 33 with a BUN of 16, creatinine 0.6, random glucose of 86. Troponins normal x 3. White cell count on admission was 18,400 with a left shift down t0 8500 today. Hematocrit is 39%, platelet count of 195,000. EKG Her 12-lead EKG demonstrates sinus bradycardia with no acute ST-T changes. CHEST X-RAY Unremarkable. CT SCAN OF THE HEAD PLAIN encephalomalacia and suspected small vessel ischemic disease. DISCUSSION This is an elderly, somewhat frail, 87-year-old female admitted to hospital after either passing out or falling at home. She has no history of atrial fibrillation than I can see. She has no history of other cardiac arrhythmias. Recommendations are as noted above. Bruce Dc, BS/SSB /3:54 PM /6:04 AM
[2017-04-13 07:25] VITALS: BP 133/58; PULSE 68; RESP 14; TEMP 96.7; O2SAT 96
[2017-04-13 08:44] VITALS: BP_SYST 173; BP_SYST 180; BP_SYST 199; BP_DIAS 72; BP_DIAS 88; BP_DIAS 91
--- NOTE | 2017-04-13 08:47 | PD.CARD.PN ---
Subjective Subjective Remarks No complaints. Denies lightheadedness, syncopy, CP or SOB. No distress lying in bed. Objective Medications Current Medications Medications (Trade) Dose Ordered Sig/Vianey Route PRN Reason Start Time Stop Time Status Last Admin Dose Admin Sodium Chloride (NS 1000 ml Inj) 1,000 ml @ 50 mls/hr Q20H IV 04/11/17 22:00 04/12/17 18:41 Sodium Chloride (NS Flush) 2 ml UNSCH PRN IV FLUSH FLUSH AFTER USING IV ACCESS 04/11/17 21:30 Sodium Chloride (NS Flush) 2 ml BID IV FLUSH 04/12/17 09:00 04/12/17 10:11 Acetaminophen (Tylenol) 650 mg Q4H PRN PO TEMP > 100.4 04/11/17 21:30 Ondansetron HCl (Zofran Inj) 4 mg Q6H PRN IVP NAUSEA OR VOMITING 04/11/17 21:30 Heparin Sodium (Porcine) (Heparin Inj) 5,000 units Q12H SQ 04/11/17 22:00 04/12/17 21:02 Naloxone HCl (Narcan Inj) 0.4 mg UNSCH PRN IV SEE LABEL COMMENTS 04/11/17 21:30 Sennosides (Senokot) 17.2 mg Q12H PRN PO MODERATE - SEVERE CONSTIPATION 04/11/17 21:30 04/12/17 15:53 Bisacodyl 10 mg 10 mg DAILY PRN RECTAL SEVERE CONSITIPATION 04/11/17 21:30 Ceftriaxone Sodium/Sodium Chloride (Rocephin Inj/NS Inj) 100 ml @ 200 mls/hr Q24H IV 04/12/17 20:00 04/12/17 21:01 Aspirin (Aspirin) 325 mg DAILY PO 04/13/17 09:00 Atorvastatin Calcium (Lipitor) 10 mg HS PO 04/12/17 21:00 04/12/17 21:01 Carvedilol (Coreg) 3.125 mg BID PO 04/12/17 21:00 04/12/17 21:01 Lisinopril (Prinivil) 5 mg DAILY@14 PO 04/13/17 14:00 Metoprolol Tartrate (Lopressor) 25 mg BID PO 04/12/17 21:00 Cyanocobalamin (Vitamin B12) 5,000 mcg DAILY PO 04/13/17 09:00 Multivitamins (Theragran) 1 tab DAILY PO NS 04/13/17 09:00 Niacin (Niacin) 500 mg DAILY PO CM 04/13/17 09:00 Vital Signs / I&O Vital Signs Date Time Temp Pulse Resp B/P Pulse Ox O2 Delivery O2 Flow Rate FiO2 04/13/17 07:25 96.7 68 14 133/58 96 04/13/17 04:52 97.0 60 20 160/70 96 04/12/17 23:55 97.6 60 17 126/60 99 04/12/17 20:52 97.6 90 18 138/81 98 04/12/17 16:14 97.8 87 18 172/72 96 04/12/17 12:18 97.9 68 18 130/60 96 I/O 04/12/17 04/12/17 04/12/17 04/13/17 04/13/17 04/13/17 07:00 15:00 23:00 07:00 15:00 23:00 Intake Total 260 ml 240 ml 240 ml 891 ml Output Total 100 ml 1 ml Balance 260 ml 240 ml 140 ml 890 ml Intake Oral 240 ml 240 ml IV Total 260 ml 891 ml Output Urine Total 100 ml Stool Total 1 ml # Voids 3 4 3 6 # Bowel Movements 1 Physical Exam VSS, afebrile. No JVD @ 45 deg. Lungs: CTA Heart: Kumar, RRR, no murmur. Ext: No C/C/E Neuro: Non-focal Laboratory Laboratory Tests Test 04/11/17 04/11/17 04/11/17 04/12/17 16:45 18:00 18:08 02:10 Prothrombin Time 10.4 SEC Prothromb Time International 0.9 RATIO Ratio Activated Partial 31.0 SEC Thromboplast Time Sodium Level 139 MEQ/L Potassium Level 4.4 MEQ/L Chloride Level 102 MEQ/L Carbon Dioxide Level 32.7 MEQ/L Anion Gap 4 MEQ/L Blood Urea Nitrogen 16 MG/DL Creatinine 0.56 MG/DL Estimat Glomerular Filtration 102 ML/MIN Rate Random Glucose 86 MG/DL Calcium Level 9.9 MG/DL Magnesium Level 1.9 MG/DL Urine Color YELLOW Urine Turbidity HAZY Urine pH 6.5 Urine Specific [place] 1.007 Urine Protein NEG mg/dL Urine Glucose (UA) NEG mg/dL Urine Ketones NEG mg/dL Urine Occult Blood SMALL Urine Nitrite NEG Urine Bilirubin NEG Urine Urobilinogen LESS THAN 2.0 MG/DL Urine Leukocyte Esterase MOD Urine RBC 9 /hpf Urine WBC 9 /hpf Urine Squamous Epithelial <1 /hpf Cells Urine Bacteria FEW /hpf Urine Mucus FEW /lpf Microscopic Urinalysis Comment CULTURE INDICATED Lactic Acid Level 1.1 mmol/L Thyroid Stimulating Hormone 0.094 uIU/ML 3rd Gen Test 04/12/17 06:20 White Blood Count 8.5 TH/MM3 Red Blood Count 4.47 MIL/MM3 Hemoglobin 13.3 GM/DL Hematocrit 39.1 % Mean Corpuscular Volume 87.6 FL Mean Corpuscular Hemoglobin 29.8 PG Mean Corpuscular Hemoglobin 34.1 % Concent Red Cell Distribution Width 15.6 % Platelet Count 195 TH/MM3 Mean Platelet Volume 8.9 FL Neutrophils (%) (Auto) 75.5 % Lymphocytes (%) (Auto) 18.0 % Monocytes (%) (Auto) 4.9 % Eosinophils (%) (Auto) 1.3 % Basophils (%) (Auto) 0.3 % Neutrophils # (Auto) 6.4 TH/MM3 Lymphocytes # (Auto) 1.5 TH/MM3 Monocytes # (Auto) 0.4 TH/MM3 Eosinophils # (Auto) 0.1 TH/MM3 Basophils # (Auto) 0.0 TH/MM3 CBC Comment DIFF FINAL Differential Comment Troponin I LESS THAN 0.02 NG/ML Imaging Last 48 hours Impressions Head Magnetic Resonance Angiography 04/12/17 0000 Signed Impressions: Service Date/Time: Wednesday, April 12, 2017 19:32 - CONCLUSION: No acute disease. Jose Guerrero MD Brain MRI 04/12/17 0000 Signed Impressions: Service Date/Time: Wednesday, April 12, 2017 19:32 - CONCLUSION: 1. No acute intracranial abnormalities. 2. Atrophy. 3. Demyelination in the cerebral and pontine white matter likely from small vessel ischemic change. 4. Encephalomalacia at the right occipital lobe. Jose Guerrero MD Head CT 04/11/17 1640 Signed Impressions: Service Date/Time: Tuesday, April 11, 2017 17:10 - CONCLUSION: No acute abnormality seen. There is age-related atrophy, encephalomalacia of the right occipital lobe and suspected small vessel ischemic change in the white matter. Jose Guererro MD Chest X-Ray 04/11/17 1640 Signed Impressions: Service Date/Time: Tuesday, April 11, 2017 16:52 - CONCLUSION: No acute disease. Jose Guerrero MD Assessment and Plan Problem List: (1) Syncope (2) Fall (3) HTN (hypertension) (4) CVA (cerebral vascular accident) (5) UTI (urinary tract infection) Assessment and Plan Telemetry has not revealed any significant arrythmias. CV stable. Check orthostatics today. Rx UTI . I will obtain records from Dr. Arrington's office for review. D/C IVF. Could possibly discharge home later today. Discussed with field staff and patient. Problem Qualifiers (1) Syncope: Qualified Code: R55 - Syncope, unspecified syncope type (2) UTI (urinary tract infection): Qualified Code: N30.00 - Acute cystitis without hematuria Filiberto Olivarez MD Apr 13, 2017 08:47
[2017-04-13] MEDS: CARVEDILOL 3.125 MG TAB PO SCH ×2 (09:14→20:44)
[2017-04-13] MEDS: METOPROLOL TARTRATE 25 MG TAB PO SCH ×2 (09:14→20:44)
[2017-04-13] MEDS: NIACIN 100 MG TAB PO SCH ×2 (09:14→09:20)
[2017-04-13] MEDS: ASPIRIN 325 MG TAB PO SCH (09:14)
[2017-04-13] MEDS: MULTIVITAMIN TAB PO SCH (09:14)
[2017-04-13] MEDS: SODIUM CHLORIDE 0.9% FLUSH 10 ML FLUSH IV FLUSH SCH ×2 (09:14→20:45)
[2017-04-13] MEDS: CYANOCOBALAMIN 1,000 MCG TAB PO SCH (09:15)
[2017-04-13] MEDS: HEPARIN SODIUM - SQ 10,000 UNITS/ML VIAL SQ SCH ×2 (09:21→20:45)
[2017-04-13] MEDS ORDERED: cloNIDine HCL 0.1 MG TAB PO PRN (10:30)
[2017-04-13 13:39] VITALS: BP 172/70; PULSE 54; RESP 18; O2SAT 96
[2017-04-13] MEDS: LISINOPRIL 5 MG TAB PO SCH (13:48)
[2017-04-13 16:57] VITALS: BP 113/51; PULSE 59; RESP 16; O2SAT 97
[2017-04-13 20:17] VITALS: BP 135/57; PULSE 77; RESP 18; TEMP 98.4; O2SAT 98
[2017-04-13] MEDS: ATORVASTATIN 10 MG TAB PO SCH (20:44)
[2017-04-13] MEDS: cefTRIAXone INJ 1,000 MG in SODIUM CHLORIDE 0.9% INJ 100 ML IV SCH (20:44)
[2017-04-14] VITALS: BP 157/74; PULSE 84; RESP 18; TEMP 98.8; O2SAT 98
[2017-04-14 04:00] VITALS: BP 121/68; PULSE 77; RESP 16; TEMP 98; O2SAT 94
[2017-04-14 07:26] VITALS: BP 143/64; PULSE 54; RESP 16; TEMP 97.4; O2SAT 98
--- NOTE | 2017-04-14 07:46 | HHI.FF ---
Face to Face Verification Diagnosis: (1) UTI (urinary tract infection) (2) Syncope (3) Physical deconditioning Physical Therapy Order: Evaluate and Treat Home Health Nursing Order: Medical education Nursing assessment with vital signs Medical Laboratory Technical Officer Order: To Evaluate: Support services Order: To Provide: Long range planning I have seen patient Anisha Novak on 04/14/17. My clinical findings support the need for the requested home health care services because: Deconditioned w/ increased weakness Need for psychosocial assistance I certify that my clinical findings support that this patient is homebound because: Unsafe to leave home unassisted Need for psychosocial assistance Nicole Timmons [facility] Apr 14, 2017 07:46
[2017-04-14] MEDS ORDERED: CEFU1TAB20 PO (07:56)
--- NOTE | 2017-04-14 07:56 | HHI.DCPOC ---
Discharge Care Plan Diagnosis: (1) Syncope (2) UTI (urinary tract infection) (3) Fall Your Health Problems Are: Anxiety Difficulty with ADL Goals to Promote Your Health * To prevent worsening of your condition and complications * To maintain your health at the optimal level Directions to Meet Your Goals Take your medications as prescribed Follow your dietary instruction Follow activity as directed Keep your appointments as scheduled Take your immunizations and boosters as scheduled If your symptoms worsen call your PCP, if no PCP go to Urgent Care Center or Emergency Room Smoking is Dangerous to Your Health. Avoid second hand smoke Call the 24-hour hour crisis hotline for domestic abuse at Nicole Timmons. [facility] Apr 14, 2017 07:56
--- NOTE | 2017-04-14 08:06 | HHI.PR ---
Subjective Subjective Remarks awakes to voice, oriented to place, self no cp no sob no dizziness poor historian afebrile orthos negative no acute changes overnight Review of Systems Constitutional Constitutional Remarks 12 point ros completed, negative except as noted above, unreliable Vitals/Results Intake & Output 04/13/17 04/13/17 04/14/17 15:00 23:00 07:00 Intake Total 960 ml 580 ml Balance 960 ml 580 ml Intake Oral 960 ml 480 ml IV Total 100 ml # Voids 4 4 # Bowel Movements 1 2 Vital Signs Vital Signs Date Time Temp Pulse Resp B/P Pulse Ox O2 Delivery O2 Flow Rate FiO2 04/14/17 04:00 98.0 77 16 121/68 94 04/14/17 00:00 98.8 84 18 157/74 98 04/13/17 20:17 98.4 77 18 135/57 98 04/13/17 16:57 59 16 113/51 97 04/13/17 13:39 54 18 172/70 96 04/13/17 08:44 180/72 173/88 199/91 CBC/BMP: 04/12/17 0620 04/11/17 1645 Physical Exam General General Appearance: Well Developed, No Acute Distress, Comfortable Eyes Eye Exam: Pupils Equal, Pupils Reactive Ears & Nose Ears & Nose Exam: Nasal Mucosa [place] Throat Throat Exam: Oral Mucosa [place] & Moist Neck Neck Exam: Neck Supple, Trachea Midline Pulmonary Resp Exam: Clear Bilaterally, No Distress Cardiology CV Exam: Regular, Good Perfusion Gastrointestinal/Abdomen GI Exam: Soft, Non-Tender, Bowel Sounds Present, Non-Distended Musculoskeletal MS Exam: Joints Intact Integumentary Skin Exam: Warm, Dry Extremeties Extremities Exam: No Edema, Pedal Pulses Palpable Neurologic Neuro Exam: Awake, Speech Clear, Moving All Extremities, No Focal Deficits Psychiatric Psych Exam: Appropriate Responses VTE Prophylaxis VTE Prophylaxis Device: SCDs VTE Remarks Eliquis Assessment/Plan Assessment/Plan 1. Syncopal episode with fall. 2. History of CVA. 3. UTI. 4. Debility with physical deconditioning. 5. Leukocytosis, unspecified. 6. Dementia 7. HTN 8. Chronic CHF 9. Hx CAD and stents Plan appreciate cardiology input, orthos ordered, negative had echo in 2016, EF 60% debilitated, needs rehab but doesn't meet inpatient criteria CM spoke to daughter, will do HHC and PT and hopefully transition to LTC as OP continue home meds resume Eliquis dc Heparin UTI, culture GPC mixed leukocytosis resolving on Rocephin no fever WBC now normal. OOB with PT CM for dc planning, HHC Plan to discharge pt today F/U card, PCP Diet-heart healthy Activity- as tolerated, fall precautions D/W RN D/W Dr. Hurst D/W pt This pt. was seen by myself and Dr. Hurst, this note is written on his behalf. Discharge Minutes: 40 Nicole Timmons Apr 14, 2017 08:06
[2017-04-14] MEDS ORDERED: APIXABAN 2.5 MG TABLET PO SCH (09:00)
[2017-04-14] MEDS: MULTIVITAMIN TAB PO SCH (10:29)
[2017-04-14] MEDS: CARVEDILOL 3.125 MG TAB PO SCH (10:29)
[2017-04-14] MEDS: CYANOCOBALAMIN 1,000 MCG TAB PO SCH (10:29)
[2017-04-14] MEDS: METOPROLOL TARTRATE 25 MG TAB PO SCH (10:29)
[2017-04-14] MEDS: SODIUM CHLORIDE 0.9% FLUSH 10 ML FLUSH IV FLUSH SCH (10:30)
[2017-04-14] MEDS: ASPIRIN 325 MG TAB PO SCH (10:30)
[2017-04-14 11:43] VITALS: BP 145/68; PULSE 66; RESP 16; TEMP 97.7; O2SAT 95
[2017-04-14] MEDS: LISINOPRIL 5 MG TAB PO SCH (14:17)
== END 2017-04-14 15:52 | disposition home or self-care (01) ==
LOC: NEPE 16:29 → INTOOBSV 19:34 → NEDH 19:34 → NEPGCP 23:39
PROVIDERS: ADMIT Specialist; ATTEND Specialist
DX: R55 Syncope and collapse (principal); N30.00 Acute cystitis without hematuria; R00.1 Bradycardia, unspecified; G93.89 Other specified disorders of brain; I25.10 Atherosclerotic heart disease of native coronary artery without angina pectoris; I11.0 Hypertensive heart disease with heart failure; I50.9 Heart failure, unspecified; E78.5 Hyperlipidemia, unspecified; E78.00 Pure hypercholesterolemia, unspecified; F41.9 Anxiety disorder, unspecified; F03.90 Unspecified dementia, unspecified severity, without behavioral disturbance, psychotic disturbance, mood disturbance, and anxiety; M81.0 Age-related osteoporosis without current pathological fracture; H91.90 Unspecified hearing loss, unspecified ear; M19.90 Unspecified osteoarthritis, unspecified site; Z95.5 Presence of coronary angioplasty implant and graft; Z85.3 Personal history of malignant neoplasm of breast; Z86.73 Personal history of transient ischemic attack (TIA), and cerebral infarction without residual deficits; Z79.899 Other long term (current) drug therapy; Z79.82 Long term (current) use of aspirin; W19.XXXA Unspecified fall, initial encounter; Y92.009 Unspecified place in unspecified non-institutional (private) residence as the place of occurrence of the external cause
CPT/HCPCS: 70450; 70544; 70551; 71010; 72170; 72192; 80048; 81001; 83605; 83735; 84443; 84484; 85025; 85610; 85730; 87040; 87086; 93005; 96361; 96365; 97162; 99285; G0378; G8987; G8988; J0696; J1644; J7030

== ENCOUNTER 2018-08-19 09:08 | Inpatient (IN) ==
--- NOTE | 2018-08-19 09:35 | ED ---
HPI General Chief complaint: Nausea/Vomiting/Diarrhea Stated complaint: Bleeding Time Seen by Provider: 08/19/18 09:20 History of Present Illness HPI narrative: The patient was seen and examined in the presence of the nurse. This patient was sent from the correction because this morning she had an episode of bright red blood per rectum. She is not symptomatic. She feels her normal baseline self. She has history of A. fib and strokes and is on Eliquis. She denies abdominal pain or vomiting. Symptom severity is mild. No alleviating factors. Symptoms likely exacerbated by blood thinner. Duration 1 hour. Related Data Home Medications Medication Instructions Recorded Confirmed acetaminophen 650 mg PO Q4H PRN 08/19/18 08/19/18 alum-mag hydroxide-simeth [Maalox 30 ml PO QID PRN 08/19/18 08/19/18 Advanced] apixaban [Eliquis] 2.5 mg PO BID 08/19/18 08/19/18 aspirin [Aspirin Childrens] See Label Instructions .ROUTE 08/19/18 08/19/18 .COMPLEX atorvastatin 5 mg PO HS 08/19/18 08/19/18 bisacodyl 10 mg [place] DAILY PRN 08/19/18 08/19/18 ipratropium-albuterol 3 ml INHALATION Q6-8H PRN 08/19/18 08/19/18 lisinopril 5 mg PO DAILY 08/19/18 08/19/18 loperamide 4 mg PO BID PRN 08/19/18 08/19/18 metoprolol tartrate 25 mg PO BID 08/19/18 08/19/18 Allergies Allergy/AdvReac Type Severity Reaction Status Date / Time Bisphosphonates Allergy Severe ALLERGY TO Verified 08/19/18 09:42 BONIVA-HYPOTENSION niacin Allergy Severe Itching Verified 08/19/18 09:42 Review of Systems ROS: all other systems reviewed are negative [facility] Medical History Medical History Atherosclerotic heart disease (Acute) Atrial fibrillation (Acute) CVD (cardiovascular disease) (Acute) Diverticulosis (Acute) Hyperlipidemia (Acute) Malignant neoplasm (Acute) Muscle weakness (Acute) Primary hypertension (Acute) Social History Social History Substance History: No History of Abuse Second Hand Smoke Exposure: No Smoking Status: Never smoker How Often Do You Have a Drink Containing Alcohol: Never Recent Travel in [facility] within the Last 8 Weeks: No Recent Out of Country Travel within the Last 8 Weeks: No Immunization History Tetanus Immunization: Unsure Exam Narrative Exam Narrative: GENERAL: Well-nourished, well-developed patient in no apparent distress. SKIN: Focused skin assessment reveals no rash and nodules. Skin is Warm and dry. HEAD: Atraumatic. Normocephalic. EYES: Pupils equal and round. No scleral icterus. No injection or drainage. ENT: No nasal bleeding or discharge. Mucous membranes pink and moist. NECK: Trachea midline. No JVD. CARDIOVASCULAR: Regular rate and rhythm. No murmur appreciated. RESPIRATORY: No accessory muscle use. Clear to auscultation. Breath sounds equal bilaterally. GASTROINTESTINAL: Abdomen soft, non-tender, nondistended. Hepatic and splenic margins not palpable. MUSCULOSKELETAL: No obvious deformities. No clubbing. No cyanosis. No edema. NEUROLOGICAL: Awake and alert. Has some speech slurring and right-sided facial droop. She reports these are chronic. She has history of strokes. Has movement of all extremities. She is ambulatory with a walker. PSYCHIATRIC: Appropriate mood and affect; insight and judgment normal. Rectal: Patient has dried blood around the anal opening. There is Bright red streaking in her depends. Course Initial Documented Vital Signs Temperature 98.5 F 08/19/18 09:15 Pulse Rate 78 08/19/18 09:15 Respiratory Rate 18 08/19/18 09:15 Blood Pressure 145/67 H 08/19/18 09:15 Pulse Oximetry 99 08/19/18 09:15 Last Documented Vital Signs Temperature 98.5 F 08/19/18 09:15 Pulse Rate 80 08/19/18 12:29 Respiratory Rate 18 08/19/18 12:29 Blood Pressure 147/72 H 08/19/18 12:29 Pulse Oximetry 100 08/19/18 12:29 Medical Decision Making MDM Narrative Medical decision making narrative: This is an 88-year-old female sent from the correction for GI bleed. She has an hour of bright red rectal bleeding and is on Eliquis. She is basically asymptomatic and her vitals are normal. I placed IV and sent labs. CBC and metabolic studies are reasonably normal. Hemoglobin is 14.2. However she is elderly and frail and on Eliquis blood thinner. She has had multiple episodes of bright red blood per rectum while here in the department. She will be admitted for GI bleed. I reviewed with the hospitalist. Medical Screen Exam Complete: Yes Emergency Medical Condition: Yes Differential Diagnosis Differential Diagnosis: Diverticulosis, internal hemorrhoid, colon cancer Medical Records Medical records reviewed: Yes I reviewed the patient's medical records. Lab Data Lab results reviewed: Yes I reviewed the patient's lab results. Lab results narrative: CBC reveals hemoglobin of 14.2 and metabolic studies are normal Result diagrams: 08/19/18 09:30 08/19/18 09:30 Lab Results 08/19/18 08/19/18 Range/Units 09:30 09:30 WBC 11.4 H (4.0-11.0) th/mm3 RBC 4.79 (4.00-5.30) mil/mm3 Hgb 14.2 (11.6-15.3) gm/dL Hct 42.9 (35.0-46.0) % MCV 89.6 (80.0-100.0) fL MCH 29.7 (27.0-34.0) pg MCHC 33.2 (32.0-36.0) % RDW 14.8 (11.6-17.2) % Plt Count 220 (150-450) th/mm3 MPV 8.5 (7.0-11.0) fL Neut % (Auto) 75.7 H (16.0-70.0) % Lymph % (Auto) 14.0 (9.0-44.0) % Gates % (Auto) 8.1 H (0.0-8.0) % Eos % (Auto) 2.1 (0.0-4.0) % Baso % (Auto) 0.1 (0.0-2.0) % Neut # (Auto) 8.6 H (1.8-7.7) th/mm3 Lymph # (Auto) 1.6 (1.0-4.8) th/mm3 Gates # (Auto) 0.9 (0.0-0.9) th/mm3 Eos # (Auto) 0.2 (0.0-0.4) th/mm3 Baso # (Auto) 0.0 (0.0-0.2) th/mm3 WBC Differential . Differential Comment Auto diff final Sodium 139 (136-145) meq/L Potassium 5.0 (3.5-5.1) meq/L Chloride 104 (98-107) meq/L Carbon Dioxide 28.1 (21.0-32.0) meq/L Anion Gap 7 (5-15) meq/L BUN 22 H (7-18) mg/dL Creatinine 0.76 (0.50-1.00) mg/dL Estimated GFR 72 L (>89) mL/min Random Glucose 87 (74-106) mg/dL Calcium 8.9 (8.5-10.1) mg/dL Discharge Plan Discharge Disposition Patient Disposition: 30 Still Patient Discharge Details Diagnosis: Acute GI bleeding, Anticoagulated Physicians Team ED Provider: Ryne Baker Primary Care Provider: Eusebio Davis Rxs /Orders / Referrals /Forms Prescriptions: No Action acetaminophen 325 mg Tablet 650 mg PO Q4H PRN (Reason: Pain) RF: 0 ipratropium-albuterol 0.5 mg-3 mg(2.5 mg base)/3 mL Solution For Nebulization 3 ml INHALATION Q6-8H PRN (Reason: Shortness Of Breath Or Wheezing) RF: 0 atorvastatin 10 mg Tablet 5 mg PO HS RF: 0 loperamide 1 mg/5 mL Liquid 4 mg PO BID PRN (Reason: Diarrhea) RF: 0 bisacodyl 10 mg Suppository 10 mg IA DAILY PRN (Reason: Constipation) RF: 0 aspirin [Aspirin Childrens] 81 mg Tablet,Chewable See Label Instructions .ROUTE .COMPLEX RF: 0 lisinopril 5 mg Tablet 5 mg PO DAILY RF: 0 alum-mag hydroxide-simeth [Maalox Advanced] 200-200-20 mg/5 mL Suspension 30 ml PO QID PRN (Reason: Diarrhea) RF: 0 metoprolol tartrate 25 mg Tablet 25 mg PO BID RF: 0 apixaban [Eliquis] 2.5 mg Tablet 2.5 mg PO BID RF: 0 Discharge Interventions Interventions: Vital Signs Last Done: 08/19/18 12:29 Status ED Status: With Doctor
[2018-08-19 09:50] LABS: Baso % (Auto) 0.1 % (0.0-2.0); Eos # (Auto) 0.2 th/mm3 (0.0-0.4); Eos % (Auto) 2.1 % (0.0-4.0); Hematocrit 42.9 % (35.0-46.0); Hemoglobin 14.2 gm/dL (11.6-15.3); Lymph # (Auto) 1.6 th/mm3 (1.0-4.8); Mean Corpuscular HGB Conc 33.2 % (32.0-36.0); Mean Corpuscular Hemoglobin 29.7 pg (27.0-34.0); Mean Corpuscular Volume 89.6 fL (80.0-100.0); Mean Platelet Volume 8.5 fL (7.0-11.0); Mono # (Auto) 0.9 th/mm3 (0.0-0.9); Mono % (Auto) 8.1 % (0.0-8.0); Neut # (Auto) 8.6 th/mm3 (1.8-7.7); Neut % (Auto) 75.7 % (16.0-70.0); Platelet Count 220 th/mm3 (150-450); Red Blood Count 4.79 mil/mm3 (4.00-5.30); Red Cell Distribution Width 14.8 % (11.6-17.2); White Blood Count 11.4 th/mm3 (4.0-11.0)
[2018-08-19 10:17] LABS: Calcium 8.9 mg/dL (8.5-10.1); Carbon Dioxide 28.1 meq/L (21.0-32.0)
--- NOTE | 2018-08-19 15:41 | P.HPIM ---
History of Present Illness Primary Care Physician: Eusebio Davis MD History of Present Illness: Mrs. Novak is an 88 year old female. She has come into the hospital today due to a painless spontaneous GI bleed. She has one prior episode of GI bleed years ago. She reports that she has been on blood thinners (aspirin, Eliquis) for years without bleeding problems. Blood thinners are in relation to a history of coronary artery disease and history of prior strokes and history of A. fib. Hemoglobin is approximately 14 when seen in the ER. Patient does not have persistent bleeding but she did have evidence of GI bleed at her outpatient care facility. No other complaints at this time. - Diagnosis (1) Acute GI bleeding Inpatient Certification: I certify that the inpatient services were ordered in accordance with Medicare regulations governing the order. This includes certification that hospital inpatient services are reasonable and necessary and in the case of services not specified as inpatient-only under 42 CFR 419.22(n), that they are appropriately provided as inpatient services in accordance to with the 2-midnight benchmark under 43 CFR 412.3(e) Estimated Total Length of Stay (Days): 2 Plans for Post Hospital Care: Home Review of Systems Constitutional: No fevers, no chills no night sweats, no fatigue, no weakness Eyes: No eye pain, no blurry vision, no loss of vision ENT: No sore throat, no ear pain, no rhinorrhea Cardiovascular: No chest pain, no tachycardia, no palpitations, no shortness of breath, no syncope Respiratory: No wheezing, no cough, no shortness of breath Gastrointestinal: No abdominal pain, no black tarry stools, bright red blood per rectum, no vomiting, no diarrhea Musculoskeletal: No joint pain, no muscle cramps, no stiffness Integumentary: No rash, no ulcers, no drainage Neurologic: No sensory loss, no loss of motor function, no dizziness Psychiatric: No behavioral changes, no hallucinations, no suicidal ideations PMF - History History Provided By: Patient - Medical History Medical History: Medical History (Last Updated 08/19/18 @ 09:42 by Kelsi Burkett) Atherosclerotic heart disease Atrial fibrillation CVD (cardiovascular disease) Diverticulosis Hyperlipidemia Malignant neoplasm Muscle weakness Primary hypertension - Family History Family History: Family History (Last Updated 08/19/18 @ 15:37 by Prateek Ellsworth MD) Other Osteoarthritis - Tobacco History Second Hand Smoke Exposure: No Smoking Status: Never smoker - Alcohol History How Often Do You Have a Drink Containing Alcohol: Never - Substance Use History Substance History: No History of Abuse - Travel History Recent Travel in the [place] Within the Last 8 Weeks: No Recent Travel Out of the Country Within the Last 8 Weeks: No - Immunization History Tetanus Immunization: Unsure Medications and Allergies Active Medications: Active Medications Albuterol (Duoneb Neb (Prn)) 1 ampul NEB Q6HR NEB PRN PRN Reason: DYSPNEA Atorvastatin Calcium (Lipitor) 5 mg PO HS TERRI Sodium Chloride (Ns Inj) 1,000 mls @ 80 mls/hr IV.CONT .[id number] TERRI Lisinopril (Prinivil) 5 mg PO DAILY TERRI Metoprolol Tartrate (Lopressor) 25 mg PO BID TERRI Ondansetron HCl (Zofran Inj) 4 mg IV.PUSH Q6H PRN PRN Reason: NAUSEA OR VOMITING Allergies Allergy/AdvReac Type Severity Reaction Status Date / Time Bisphosphonates Allergy Severe ALLERGY TO Verified 08/19/18 09:42 BONIVA-HYPOTENSION niacin Allergy Severe Itching Verified 08/19/18 09:42 Home Medications Medication Instructions Recorded Confirmed Type acetaminophen 650 mg PO Q4H PRN 08/19/18 08/19/18 History alum-mag hydroxide-simeth [Maalox 30 ml PO QID PRN 08/19/18 08/19/18 History Advanced] apixaban [Eliquis] 2.5 mg PO BID 08/19/18 08/19/18 History aspirin [Aspirin Childrens] See Label Instructions .ROUTE 08/19/18 08/19/18 History .COMPLEX atorvastatin 5 mg PO HS 08/19/18 08/19/18 History bisacodyl 10 mg ND DAILY PRN 08/19/18 08/19/18 History ipratropium-albuterol 3 ml INHALATION Q6-8H PRN 08/19/18 08/19/18 History lisinopril 5 mg PO DAILY 08/19/18 08/19/18 History loperamide 4 mg PO BID PRN 08/19/18 08/19/18 History metoprolol tartrate 25 mg PO BID 08/19/18 08/19/18 History Exam Vital signs: Vital Signs 08/19/18 09:15 08/19/18 12:29 08/19/18 14:14 Temperature 98.5 F Pulse Rate 78 80 81 Respiratory Rate 18 18 20 Blood Pressure 145/67 H 147/72 H 141/79 H Pulse Oximetry 99 100 97 Intake & Output 08/18/18 08/19/18 08/19/18 18:59 06:59 18:59 Weight 76.204 kg Narrative: GENERAL: NAD, A&Ox3 HEAD: Normocephalic. NECK: Supple, trachea midline. No lymphadenopathy. EYES: No scleral icterus. No injection or drainage. CARDIOVASCULAR: Regular rate and rhythm without murmurs, gallops, or rubs. RESPIRATORY: Breath sounds equal bilaterally. No accessory muscle use. GASTROINTESTINAL: Abdomen soft, non-tender, nondistended. MUSCULOSKELETAL: No cyanosis, or edema. SKIN: Warm and dry. 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 Results - Labs CBC & Chem 7: 08/19/18 09:30 08/19/18 09:30 Labs: Short CBC 08/19/18 Range/Units 09:30 WBC 11.4 H (4.0-11.0) th/mm3 Hgb 14.2 (11.6-15.3) gm/dL Hct 42.9 (35.0-46.0) % Plt Count 220 (150-450) th/mm3 BMP 08/19/18 09:30 Sodium 139 Potassium 5.0 Chloride 104 Carbon Dioxide 28.1 BUN 22 H Creatinine 0.76 Calcium 8.9 Caprini VTE Risk Assessment Caprini VTE Risk Assessment: Moderate/High Risk (score >= 2) Caprini Risk Assessment Model: Point Value = 1 Point Value = 2 Point Value = 3 Point Value = 5 Age 41-60 Minor surgery BMI > 25 kg/m2 Swollen legs Varicose veins or History of unexplained or recurrent spontaneous Oral contraceptives or hormone replacement Sepsis (< 1 month) Serious lung disease, including pneumonia (< 1 month) Abnormal pulmonary function Acute myocardial infarction Congestive heart failure (< 1 month) History of inflammatory bowel disease Medical patient at bed rest Age 61-74 Arthroscopic surgery Major open surgery (> 45 min) Laparoscopic surgery (> 45 min) Malignancy Confined to bed (> 72 hours) Immobilizing plaster cast Central venous access Age >= 75 History of VTE Family history of VTE Factor V Leiden Prothrombin [id number] Lupus anticoagulant Anticardiolipin antibodies Elevated serum homocysteine Heparin-induced thrombocytopenia Other congenital or acquired thrombophilia Stroke (< 1 month) Elective arthroplasty Hip, pelvis, or leg fracture Acute spinal cord injury (< 1 month) Prophylaxis Regimen: Total Risk Factor Score Risk Level Prophylaxis Regimen 0-1 Low Early ambulation 2 Moderate Order ONE of the following: *Sequential Compression Device (SCD) *Heparin 5000 units SQ BID 3-4 Higher Order ONE of the following medications: *Heparin 5000 units SQ TID *Enoxaparin/Lovenox 40 mg SQ daily (WT < 150 kg, CrCl > 30 mL/min) *Enoxaparin/Lovenox 30 mg SQ daily (WT < 150 kg, CrCl > 10-29 mL/min) *Enoxaparin/Lovenox 30 mg SQ BID (WT < 150 kg, CrCl > 30 mL/min) AND/OR *Sequential Compression Device (SCD) 5 or more Highest Order ONE of the following medications: *Heparin 5000 units SQ TID (Preferred with Epidurals) *Enoxaparin/Lovenox 40 mg SQ daily (WT < 150 kg, CrCl > 30 mL/min) *Enoxaparin/Lovenox 30 mg SQ daily (WT < 150 kg, CrCl > 10-29 mL/min) *Enoxaparin/Lovenox 30 mg SQ BID (WT < 150 kg, CrCl > 30 mL/min) AND *Sequential Compression Device (SCD) Assessment and Plan - Assessment (1) Acute GI bleeding Code(s): K92.2 - Gastrointestinal hemorrhage, unspecified Status: Acute - Plan 88-year-old female admitted secondary to acute GI bleed Acute GI bleed Follow CBC Follow clinically for cessation of bleeding Hold aspirin Hold Eliquis GI consulted Consider transfusions if needed History of Diverticulosis May be contributory Treat as listed above Atherosclerotic heart disease Atrial fibrillation CVD (cardiovascular disease) Follow on telemetry Continue metoprolol Hold aspirin, hold Eliquis Hyperlipidemia Continue statin Follows as an outpatient Hypertension Continue baseline treatment Follow blood pressures Adjust treatments as needed History of CVA History of malignant neoplasm Chronic muscle weakness follow clinically DVT prophylaxis SCDs
[2018-08-19] MEDS: Sod Chloride 0.9% Inj 1,000 ML IV.CONT SCH (16:08)
[2018-08-19] MEDS ORDERED: Magnesium Citrate Liq 300 ML Bottle PO ONE (20:07)
[2018-08-19] MEDS: Metoprolol Tartrate 25 MG Tablet PO SCH (20:48)
[2018-08-19 23:15] VITALS: RESP 18
[2018-08-20] MEDS: Sod Chloride 0.9% Inj 1,000 ML IV.CONT SCH ×2 (03:14→17:03)
[2018-08-20] MEDS ORDERED: Metoprolol Tartrate 25 MG Tablet PO ONE (05:21)
[2018-08-20] MEDS ORDERED: Chlorhexidine Gluconate 2% 1 Pack (2 Cloths) TOPICAL ONE (05:21)
[2018-08-20] MEDS ORDERED: Sodium Chlor 0.9% Inj 500 ML IV.SIG SCH (06:00)
[2018-08-20] MEDS: Lisinopril 5 MG Tablet PO SCH (08:02)
[2018-08-20] MEDS: Metoprolol Tartrate 25 MG Tablet PO SCH ×2 (08:03→22:08)
--- NOTE | 2018-08-20 10:31 | P.CONGI ---
History of Present Illness Consult date: 08/20/18 Consult reason: GI bleed on Eliquis Chief complaint: GI bleed, Anticogulated History of Present Illness: This patient is an 88-year-old female who presented to the emergency room at [facility] on 08/19/2018 with complaint of dark stools with small amount of bright red bleeding times 1 day. Patient states that she currently takes aspirin and Eliquis and has done so for years without any prior bleeding issues. Patient has medical history significant for atherosclerotic heart disease, atrial fibrillation, cardiovascular disease, diverticulosis, hyperlipidemia, malignant neoplasm of the left breast and muscle weakness. Upon consultation patient denies any noted obvious bleeding in stools passed due to prep taken for colonoscopy. Patient denies any abdominal pain nausea or vomiting. Denies weakness, dizziness or shortness of breath. Patient denies ever having had EGD in the past but does state that she had a colonoscopy done 2 years ago that revealed diverticulosis without diverticulitis. Patient denies any known family history of gastrointestinal disorders. She denies the use of NSAIDs other than aspirin. Denies any tobacco or alcohol usage. Our service has been consulted to evaluate patient's GI bleeding. Review of Systems All other systems reviewed negative except as stated in HPI PMFSH - History History Provided By: Patient, Family Member - Medical History Medical History: Medical History (Last Updated 08/19/18 @ 09:42 by Kelsi Burkett) Atherosclerotic heart disease Atrial fibrillation CVD (cardiovascular disease) Diverticulosis Hyperlipidemia Malignant neoplasm Muscle weakness Primary hypertension - Family History Family History: Family History (Last Updated 08/19/18 @ 15:37 by Prateek Ellsworth MD) Other Osteoarthritis - Tobacco History Second Hand Smoke Exposure: No Smoking Status: Never smoker - Alcohol History How Often Do You Have a Drink Containing Alcohol: Never - Substance Use History Substance History: No History of Abuse - Travel History Recent Travel in the [place] Within the Last 8 Weeks: No Recent Travel Out of the Country Within the Last 8 Weeks: No - Immunization History Tetanus Immunization: Unsure Hx Influenza Vaccine This Season: Yes Medications and Allergies Active Medications: Active Medications Albuterol (Duoneb Neb (Prn)) 1 ampul NEB Q6HR NEB PRN PRN Reason: DYSPNEA Atorvastatin Calcium (Lipitor) 5 mg PO HS [facility] Last Admin: 08/19/18 20:38 Dose: 5 mg Sodium Chloride (Ns Inj) 1,000 mls @ 80 mls/hr IV.CONT .[id number] [facility] Last Admin: 08/20/18 03:14 Dose: 80 mls/hr Lactated Ringer's (Lr 1000 Ml Inj) 1,000 mls @ 30 mls/hr IV.SIG .Q24H [facility] Stop: 08/21/18 05:29 Last Admin: 08/20/18 08:04 Dose: 30 mls/hr Sodium Chloride (Ns Inj) 500 mls @ 30 mls/hr IV.SIG .Q10H [facility] Last Admin: 08/20/18 08:05 Dose: Not Given Lisinopril (Prinivil) 5 mg PO DAILY [facility] Last Admin: 08/20/18 08:02 Dose: 5 mg Metoprolol Tartrate (Lopressor) 25 mg PO BID [facility] Last Admin: 08/20/18 08:03 Dose: Not Given Ondansetron HCl (Zofran Inj) 4 mg IV.PUSH Q6H PRN PRN Reason: NAUSEA OR VOMITING Allergies Allergy/AdvReac Type Severity Reaction Status Date / Time Bisphosphonates Allergy Severe ALLERGY TO Verified 08/19/18 09:42 BONIVA-HYPOTENSION niacin Allergy Severe Itching Verified 08/19/18 09:42 Home Medications Medication Instructions Recorded Confirmed Type acetaminophen 650 mg PO Q4H PRN 08/19/18 08/19/18 History alum-mag hydroxide-simeth [Maalox 30 ml PO QID PRN 08/19/18 08/19/18 History Advanced] apixaban [Eliquis] 2.5 mg PO BID 08/19/18 08/19/18 History aspirin [Aspirin Childrens] See Label Instructions .ROUTE 08/19/18 08/19/18 History .COMPLEX atorvastatin 5 mg PO HS 08/19/18 08/19/18 History bisacodyl 10 mg [place] DAILY PRN 08/19/18 08/19/18 History ipratropium-albuterol 3 ml INHALATION Q6-8H PRN 08/19/18 08/19/18 History lisinopril 5 mg PO DAILY 08/19/18 08/19/18 History loperamide 4 mg PO BID PRN 08/19/18 08/19/18 History metoprolol tartrate 25 mg PO BID 08/19/18 08/19/18 History Exam Vital signs: Vital Signs 08/19/18 12:29 08/19/18 14:14 08/19/18 16:00 Temperature 97.2 F L Pulse Rate 80 81 100 H Respiratory Rate 18 20 20 Blood Pressure 147/72 H 141/79 H 152/65 H Pulse Oximetry 100 97 98 08/19/18 20:00 08/19/18 23:51 08/20/18 00:00 Temperature 97.7 F 97.6 F Pulse Rate 76 46 L 82 Respiratory Rate 18 18 Blood Pressure 137/64 141/66 H Pulse Oximetry 92 L 92 L 08/20/18 03:58 08/20/18 08:00 Temperature 98.1 F Pulse Rate 49 L 48 L Respiratory Rate 18 Blood Pressure 117/56 L Pulse Oximetry 96 Intake & Output 08/19/18 08/20/18 08/20/18 18:59 06:59 18:59 Intake Total 480 / 480 1000 / 1000 Balance 480 / 480 1000 / 1000 Weight 76.4 kg Intake: IV 1000 / 1000 NS Inj 1,000 ML @ 80 mls/hr IV. 1000 / 1000 CONT .[id number] TERRI Rx#:[id number] Oral 480 / 480 Other: # Voids 2 Date of Last Bowel Movement 08/20/18 # Bowel Movements 3 # Incontinent Bowel Movements 1 Weight On Admission 76.4 kg - Constitutional no acute distress - Routine HEENT Exam Head: Present: normocephalic - Routine Respiratory Exam Present: CTA bilaterally. Absent: accessory muscle use - Routine Abdominal Exam Present: soft, normoactive bowel sounds. Absent: tenderness, distended, guarding, firm - Routine Extremities Exam Present: pulses intact. Absent: edema - Routine Skin Exam Present: dry, warm. Absent: pallor - Routine Neurological Exam Present: alert - Routine Psychiatric Exam Present: normal affect, cooperative Results - Labs CBC & Chem 7: 08/19/18 09:30 08/19/18 09:30 Assessment and Plan (1) Acute GI bleeding Status: Acute Code(s): K92.2 - Gastrointestinal hemorrhage, unspecified - Plan This patient is an 88-year-old female who presented to the emergency room at [facility] on 08/19/2018 with complaint of dark stools with small amount of bright red bleeding times 1 day. Patient states that she currently takes aspirin and Eliquis and has done so for years without any prior bleeding issues. Patient has medical history significant for atherosclerotic heart disease, atrial fibrillation, CVA, cardiovascular disease, diverticulosis, hyperlipidemia, malignant neoplasm of the left breast and muscle weakness. Upon consultation patient denies any noted obvious bleeding in stools passed due to prep taken for colonoscopy. Patient denies any abdominal pain nausea or vomiting. Denies weakness, dizziness or shortness of breath. Patient denies ever having had EGD in the past but does state that she had a colonoscopy done 2 years ago that revealed diverticulosis without diverticulitis. Patient denies any known family history of gastrointestinal disorders. She denies the use of NSAIDs other than aspirin. Denies any tobacco or alcohol usage. Our service has been consulted to evaluate patient's GI bleeding. GI bleeding Patient reports dark stools with small amount of bright red blood noticed times 1 day. Denies abdominal pain nausea or vomiting. On aspirin and Eliquis for coronary artery disease and atrial fibrillation with history of prior stroke. 08/19/2018 WBC 11.4 hemoglobin 14.2 hematocrit 42.9 platelet count 220 Plan -N.p.o. -EGD and colonoscopy today -Monitor for bleeding -Monitor hemoglobin and hematocrit -PPI -IV hydration -Avoid anticoagulant -Supportive care -Further recommendations to follow based on patient status and findings This patient has been seen by myself and Dr. Tapia and this note is written on her behalf - Attending Attestation Dr. Tapia
--- NOTE | 2018-08-20 11:53 | GIPROC ---
[facility] [address] [facility]. [facility], [address] COLONOSCOPY PROCEDURE REPORT EXAM DATE: 08/20/2018 PATIENT NAME: Anisha Novak MR #: [id number] BIRTHDATE: 1930 ENDOSCOPIST: Annette Tapia MD ORDER #: [id number] [employer]ET[employer] COORDINATOR: Nilam Franklin and Kelsi Joel STATUS: inpatient INDICATIONS: The patient is a 88 yr old female here for a colonoscopy due to gi bleeding PROCEDURE PERFORMED: Colonoscopy with polypectomy Colonoscopy with ablation MEDICATIONS: Per Anesthesia and None. PREP QUALITY: good PREP TYPE:Other: ESTIMATED BLOOD LOSS: None CONSENT: The patient understands the risks and benefits of the procedure and understands that these risks include, but are not limited to: sedation, allergic reaction, infection, perforation and/or bleeding. Alternative means of evaluation and treatment include, among others: physical exam, x-rays, and/or surgical intervention. The patient elects to proceed with this endoscopic procedure. medical equipment was checked for proper function. Hand hygiene and appropriate measures for infection prevention was taken. After the risks, benefits and alternatives of the procedure were thoroughly explained, Informed consent was verified, confirmed and timeout was successfully executed by the treatment team. A digital exam revealed external hemorrhoids The Pentax EC-[id number] endoscope was introduced through the anus and advanced to the cecum, which was identified by both the appendix and ileocecal valve. The instrument was then slowly withdrawn as the colon was fully examined. 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 Retroflexed views revealed internal hemorrhoids and Retroflexed views revealed small internal hemorrhoids The scope was then completely withdrawn from the patient and the procedure terminated. PROCEDURE WITHDRAWAL TIME:10minutes ADVERSE EVENTS: There were no complications. IMPRESSIONS: 1. 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 Retroflexed views revealed internal hemorrhoids 3. Retroflexed views revealed small internal hemorrhoids 4. Revealed external hemorrhoids RECOMMENDATIONS: 1. Await biopsy results. Biopsy results will not be ready for 7-10 days. If you don't hear from us in two weeks, call our office for results. 2. Benefiber 2 tsp daily 3. Probiotics from any C or health food store 4. Yearly rectal exams 5. Ok to [place] home from [facility] ok for anticoagulation from [facility] RECALL: Return 5 years Colonoscopy nAnette Tapia MD eSigned: Annette Tapia MD 08/20/2018 11:52 AM cc: PATIENT NAME: Anisha Novak MR#: [id number]
--- NOTE | 2018-08-20 11:56 | GIPROC ---
[facility] [address] [facility]. [facility], [address] EGD PROCEDURE REPORT EXAM DATE: 08/20/2018 PATIENT NAME: Anisha Novak MR #: [id number] BIRTHDATE: 1930 ATTENDING: Annette Tapia MD ORDER #: [id number] BULB FARMWORKER: Nilam Franklin and Kelsi Joel STATUS: inpatient INDICATIONS: The patient is a 88 yr old female here for an EGD due to gi bleeding PROCEDURE PERFORMED: EGD w/ biopsy MEDICATIONS: Per Anesthesia and None. TOPICAL ANESTHETIC: none CONSENT: The patient understands the risks and benefits of the procedure and understands that these risks include, but are not limited to: sedation, allergic reaction, infection, perforation and/or bleeding. Alternative means of evaluation and treatment include, among others: physical exam, x-rays, and/or surgical intervention. The patient elects to proceed with this endoscopic procedure. medical equipment was checked for proper function. Hand hygiene and appropriate measures for infection prevention was taken. After the risks, benefits and alternatives of the procedure were thoroughly explained, Informed consent was verified, confirmed and timeout was successfully executed by the treatment team. The patient was anesthetized with topical anesthesia and the EC-[id number] (Pedi C) endoscope was introduced through the mouth and advanced to the second portion of the duodenum. Retroflexed views revealed a hiatal hernia The gastroscope was then slowly withdrawn and removed. Duodenitis second portion-biopsy gastritis antrum-biopsy esophagitis distal esophagus-biopsy. ADVERSE EVENTS: There were no complications. IMPRESSIONS: 1. Duodenitis second portion-biopsy gastritis antrum-biopsy esophagitis distal esophagus-biopsy 2. Retroflexed views revealed a hiatal hernia RECOMMENDATIONS: 1. Await biopsy results. Biopsy results will not be ready for 7-10 days. If you don't hear from us in two weeks, call our office for biopsy results. 2. Begin feeding tomorrow 3. Continue PPI PATIENT CONDITION: stable DISPOSITION: Inpatient REPEAT EXAM: Return 1 year EGD Annette Tapia MD eSigned: Annette Tapia MD 08/20/2018 11:55 AM cc:
[2018-08-20] MEDS: Pantoprazole Inj 40 MG Vial IV.PUSH SCH ×2 (13:00→22:09)
[2018-08-20 14:12] LABS: Hematocrit 38.8 % (35.0-46.0); Hemoglobin 12.9 gm/dL (11.6-15.3)
--- NOTE | 2018-08-20 14:48 | P.PNIM ---
Subjective Interval history: Hemoglobin dropped from 14.2 yesterday down to 12.9 today. Patient had an colonoscopy/EGD today and AVM was found and treated. She is doing well no complaints of pain. No further evidence of bleeding. Physical Exam Vital signs: Vital Signs 08/19/18 16:00 08/19/18 20:00 08/19/18 23:51 Temperature 97.2 F L 97.7 F Pulse Rate 100 H 76 46 L Respiratory Rate 20 18 Blood Pressure 152/65 H 137/64 Pulse Oximetry 98 92 L 08/20/18 00:00 08/20/18 03:58 08/20/18 08:00 Temperature 97.6 F 98.1 F Pulse Rate 82 49 L 48 L Respiratory Rate 18 18 Blood Pressure 141/66 H 117/56 L Pulse Oximetry 92 L 96 08/20/18 11:52 Temperature 98.4 F Pulse Rate 54 L Respiratory Rate 18 Blood Pressure 128/54 L Pulse Oximetry 96 Intake & Output 08/19/18 08/20/18 08/20/18 18:59 06:59 18:59 Intake Total 480 / 480 1000 / 1000 300 / 300 Balance 480 / 480 1000 / 1000 300 / 300 Weight 76.4 kg Intake: IV 1000 / 1000 NS Inj 1,000 ML @ 80 mls/hr IV. 1000 / 1000 CONT .[id number] [facility] Rx#:[id number] Oral 480 / 480 Anesthesia Amount 300 / 300 Other: # Voids 2 Date of Last Bowel Movement 08/20/18 # Bowel Movements 3 # Incontinent Bowel Movements 1 Weight On Admission 76.4 kg Narrative: GENERAL: NAD, A&Ox3 HEAD: Normocephalic. NECK: Supple, trachea midline. No lymphadenopathy. EYES: No scleral icterus. No injection or drainage. CARDIOVASCULAR: Regular rate and rhythm without murmurs, gallops, or rubs. RESPIRATORY: Breath sounds equal bilaterally. No accessory muscle use. GASTROINTESTINAL: Abdomen soft, non-tender, nondistended. MUSCULOSKELETAL: No cyanosis, or edema. SKIN: Warm and dry. 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 Results - Labs CBC & Chem 7: 08/20/18 13:43 08/19/18 09:30 Laboratory Results - last 24 hr 08/20/18 13:43 Hgb 12.9 Hct 38.8 Assessment and Plan - Assessment (1) Acute GI bleeding Code(s): K92.2 - Gastrointestinal hemorrhage, unspecified Status: Acute - Plan 88-year-old female admitted secondary to acute GI bleed Status post GI procedure with treatment of AVM. Monitor CBC through tomorrow. If stable consider discharge tomorrow morning. Acute GI bleed Follow CBC Follow clinically for cessation of bleeding Hold aspirin Hold Eliquis GI consulted Consider transfusions if needed History of Diverticulosis May be contributory Treat as listed above Atherosclerotic heart disease Atrial fibrillation CVD (cardiovascular disease) Follow on telemetry Continue metoprolol Hold aspirin, hold Eliquis Hyperlipidemia Continue statin Follows as an outpatient Hypertension Continue baseline treatment Follow blood pressures Adjust treatments as needed History of CVA History of malignant neoplasm Chronic muscle weakness follow clinically DVT prophylaxis SCDs
--- NOTE | 2018-08-20 16:05 | ECG ---
Date Performed: 08/19/2018 Time Performed: 22:36:20 PTAGE: 88 years EKG: SINUS BRADYCARDIA Since previous tracing, no significant change noted BORDERLINE ECG PREVIOUS TRACING : 04/11/2017 17.43 DOCTOR: Giovanna Jordan Interpretating Date/Time 08/20/2018 16:04:31
[2018-08-21 01:35] VITALS: O2SAT 96
[2018-08-21] MEDS: Sod Chloride 0.9% Inj 1,000 ML IV.CONT SCH (05:36)
[2018-08-21 07:29] VITALS: BP 161/70; TEMP 98.1
[2018-08-21] MEDS: Metoprolol Tartrate 25 MG Tablet PO SCH (08:21)
[2018-08-21] MEDS: Lisinopril 5 MG Tablet PO SCH (08:21)
[2018-08-21 08:24] LABS: Baso % (Auto) 0.1 % (0.0-2.0); Eos # (Auto) 0.2 th/mm3 (0.0-0.4); Eos % (Auto) 2.6 % (0.0-4.0); Hemoglobin 12.1 gm/dL (11.6-15.3); Lymph # (Auto) 1.4 th/mm3 (1.0-4.8); Lymph % (Auto) 16.2 % (9.0-44.0); Mean Corpuscular HGB Conc 32.8 % (32.0-36.0); Mean Corpuscular Hemoglobin 29.7 pg (27.0-34.0); Mean Corpuscular Volume 90.5 fL (80.0-100.0); Mean Platelet Volume 8.4 fL (7.0-11.0); Mono # (Auto) 0.6 th/mm3 (0.0-0.9); Mono % (Auto) 7.5 % (0.0-8.0); Neut # (Auto) 6.3 th/mm3 (1.8-7.7); Neut % (Auto) 73.6 % (16.0-70.0); Platelet Count 199 th/mm3 (150-450); Red Blood Count 4.09 mil/mm3 (4.00-5.30); Red Cell Distribution Width 14.7 % (11.6-17.2); White Blood Count 8.6 th/mm3 (4.0-11.0)
[2018-08-21 08:50] LABS: Albumin 2.5 g/dL (3.4-5.0); Anion Gap 7 meq/L (5-15); Aspartate Aminotransferase 14 U/L (15-37); Blood Urea Nitrogen 14 mg/dL (7-18); Calcium 8.2 mg/dL (8.5-10.1); Carbon Dioxide 27.2 meq/L (21.0-32.0); Chloride 111 meq/L (98-107); Glomerular Filtration Rate 89 mL/min (>89); Glucose,Random 94 mg/dL (74-106); Potassium 4.4 meq/L (3.5-5.1); Sodium 145 meq/L (136-145)
[2018-08-21 08:52] LABS: Alanine Aminotransferase 12 U/L (10-53)
[2018-08-21 08:54] LABS: Alkaline Phosphatase 97 U/L (45-117); Total Protein 5.6 g/dL (6.4-8.2)
[2018-08-21 09:50] VITALS: PULSE 58
--- NOTE | 2018-08-21 10:49 | P.DS ---
Date of admission: 08/19/18 14:18 Primary care physician: Eusebio Davis MD Brief History from admission: Mrs. Novak is an 88 year old female. She has come into the hospital today due to a painless spontaneous GI bleed. She has one prior episode of GI bleed years ago. She reports that she has been on blood thinners (aspirin, Eliquis) for years without bleeding problems. Blood thinners are in relation to a history of coronary artery disease and history of prior strokes and history of A. fib. Hemoglobin is approximately 14 when seen in the ER. Patient does not have persistent bleeding but she did have evidence of GI bleed at her outpatient care facility. No other complaints at this time. DS: Diagnosis - Discharge Diagnosis (1) Acute GI bleeding Status: Acute DS: Medications - Discharge Medications Prescriptions: apixaban [Eliquis] 2.5 mg PO BID #60 tab aspirin [Aspirin Childrens] See Label Instructions .ROUTE .COMPLEX #30 tab DS: Summary Hospital Course: Mrs. Novak is an 88-year-old female. She was admitted secondary to GI bleed. She has no recent history of GI bleed but has a distant past history of GI bleed once. Presently she has been on blood thinners, Eliquis and aspirin. These were held. Colonoscopy performed. AVM found and cauterized. Patient has shown no signs of bleeding since. Her hemoglobin has remained within normal limits during the stay. Stability documented based on CBC this morning in comparison. At this point no further evidence or risk of bleeding appears present. She is asked to stay off blood thinners for 3 more days and resume it on 08/23/2018. Medically stable and cleared for discharge to nursing home facility today. All other medications are resumed. - Time Spent with Patient Total time spent providing and/or coordinating discharge services: Greater than 30 minutes - Quality: VTE Deep Vein Thrombosis/Pulmonary Embolism Present on Admission: No Exam Vital signs: Vital Signs 08/20/18 11:52 08/20/18 16:00 08/20/18 17:02 Temperature 98.4 F 98 F Pulse Rate 54 L 66 58 L Respiratory Rate 18 18 Blood Pressure 128/54 L 139/60 Pulse Oximetry 96 98 08/20/18 20:00 08/21/18 00:00 08/21/18 04:00 Temperature 98.1 F 97.8 F 97.2 F L Pulse Rate 60 60 61 Respiratory Rate 18 18 18 Blood Pressure 155/65 H 158/67 H 148/85 H Pulse Oximetry 97 96 96 08/21/18 07:28 08/21/18 08:00 Temperature 98.1 F Pulse Rate 60 58 L Respiratory Rate 18 Blood Pressure 161/70 H Pulse Oximetry 96 Intake & Output 08/20/18 08/21/18 08/21/18 18:59 06:59 18:59 Intake Total 1800 / 1800 1480 / 1480 Output Total 650 / 650 600 / 600 Balance 1800 / 1800 830 / 830 -600 / -600 Weight 76.5 kg Intake: IV 1000 / 1000 1000 / 1000 NS Inj 1,000 ML @ 80 mls/hr IV. 1000 / 1000 1000 / 1000 CONT .[id number] [facility] Rx#:[id number] Oral 500 / 500 480 / 480 Anesthesia Amount 300 / 300 Output: Urine 650 / 650 600 / 600 Other: # Incontinent Voids 1 Date of Last Bowel Movement 08/21/18 # Incontinent Bowel Movements 1 1 Results Procedures completed during hospitalization: Colonoscopy Pending studies at discharge: Pending at discharge 08/20/18 13:11 Surgical [PTH] Routine Labs on day of discharge: Labs from last 24 hours 08/21/18 08/21/18 08/20/18 07:35 07:35 13:43 WBC 8.6 RBC 4.09 Hgb 12.1 12.9 Hct 37.0 38.8 MCV 90.5 MCH 29.7 MCHC 32.8 RDW 14.7 Plt Count 199 MPV 8.4 Neut % (Auto) 73.6 H Lymph % (Auto) 16.2 [place] % (Auto) 7.5 Eos % (Auto) 2.6 Baso % (Auto) 0.1 Neut # (Auto) 6.3 Lymph # (Auto) 1.4 [place] # (Auto) 0.6 Eos # (Auto) 0.2 Baso # (Auto) 0.0 WBC Differential . Differential Comment Auto diff final Sodium 145 Potassium 4.4 Chloride 111 H Carbon Dioxide 27.2 Anion Gap 7 BUN 14 Creatinine 0.63 Estimated GFR 89 Random Glucose 94 Calcium 8.2 L Total Bilirubin 0.4 AST 14 L ALT 12 Alkaline Phosphatase 97 Total Protein 5.6 L Albumin 2.5 L Discharge Plan - Discharge Disposition Patient Disposition: 03 Discharge to SNF - Discharge Condition Condition: Stable - Discharge Order Discharge Orders: Discharge Order (Routine); Ordered 08/21/18 Ordered By: Prateek Ellsworth - Discharge Details Anticipated Discharge Date: 08/21/18 - Physicians Team Primary Care Provider: Eusebio Davis Attending Provider: Prateek Ellsworth Other Providers: Annette Tapia MD ; [facility] [place],[facility]
[2018-08-21] MEDS: Pantoprazole Inj 40 MG Vial IV.PUSH SCH (12:20)
== END 2018-08-21 13:07 ==
LOC: NEPE 09:08 → NEDA 14:18 → N05 16:14
PROVIDERS: ADMIT Hospitalist; ATTEND Hospitalist
PROC: PANENDO (2018-08-20 11:10)